=== PATIENT | female | born 1940 | race Caucasian/White ===

== ENCOUNTER 2017-12-07 07:52 | Day surgery (SDC) | payer OTHER ==
[2017-12-07] MEDS ORDERED: Ringers Lactate 1,000 ML IV ONE ×3 (08:02→12:36)
[2017-12-07] MEDS ORDERED: PROPOFOL 200 MG/20 ML VIAL IV ONE (09:54)
[2017-12-07] MEDS ORDERED: LIDOCAINE 1% MPF 2 ML AMPULE ONE (09:54)
[2017-12-07] MEDS ORDERED: GENTAMICIN SULF 80 MG/2ML INJ ONE (09:55)
[2017-12-07] MEDS ORDERED: GLUCAGON 1 MG/VIAL IV ONE ×2 (10:18→10:26)
[2017-12-07] MEDS ORDERED: CEFAZOLIN/SWI 1gm 1 GM/10 ML SYR ONE (11:02)
--- NOTE | 2017-12-07 11:05 | RAD REPORT ---
EXAM DESCRIPTION: Fluoroscopy for ERCP CLINICAL HISTORY: ERCP Abdominal pain FINDINGS: Fluoroscopic images submitted from ERCP procedure. Details and diagnostic findings of the procedure are not available. Total fluoroscopy time: 8 minutes and 8 seconds
[2017-12-07] MEDS ORDERED: ONDANSETRON 4 MG/2 ML VIAL IV ONE (11:15)
[2017-12-07] MEDS ORDERED: ONDANSETRON 4 MG/2 ML VIAL ONE (11:21)
--- NOTE | 2017-12-07 11:53 | ENDO RPT ---
[address], [address] ERCP PROCEDURE REPORT EXAM DATE: 12/07/2017 PATIENT NAME: Susi Bell MR #: [id number] BIRTHDATE: 1940 ATTENDING: Cristiano Carrasquillo Dr STATUS: outpatient SENIOR BOOKKEEPER: Eunice Tinoco RN and Mary Ann Lowery INDICATIONS: The patient is a 76 yr old Female here for an ERCP due to stone and abnormal imaging PROCEDURE PERFORMED: ERCP with sphincterotomy, ERCP with balloon passage, and ERCP with removal of stones MEDICATIONS: Per Anesthesia. CONSENT: The patient understands the risks and benefits of the procedure and understands that these risks include, but are not limited to: sedation, allergic reaction, infection, perforation and/or bleeding. Alternative means of evaluation and treatment include, among others: physical exam, x-rays, and/or surgical intervention. The patient elects to proceed with this endoscopic procedure. DESCRIPTION OF PROCEDURE: During intra-op preparation period all mechanical medical equipment was checked for proper function. Hand hygiene and appropriate measures for infection prevention was taken. Procedure, possible complications, and alternatives including but not limited to the possibility of bleeding, perforation, tear, infection, sepsis, need for surgery, need for blood transfusion, and anesthesia related complications were explained to the patient. In addition, 5-30% incidence of acute pancreatitis as a result of ERCP were explained. After the risks, benefits and alternatives of the procedure were thoroughly explained, Informed was verified, confirmed and timeout was successfully executed by the treatment team. With the patient in left semi-prone position, medications were administered intravenously.The ED-[id number] ([id number]) was passed from the mouth into the esophagus and further advanced from the esophagus into the stomach. From stomach scope was directed to the second portion of the duodenum. Major papilla was aligned with the duodenoscope. The scope position was confirmed fluoroscopically. Rest of the findings/therapeutics are given below. The scope was then completely withdrawn from the patient and the procedure completed. The pulse, BP, and O2 saturation were monitored and documented by the physician and the nursing staff throughout the entire procedure. The patient was cared for as planned according to standard protocol. The patient was then discharged to recovery in stable condition and with appropriate post procedure care. Multiple stones were found in the common bile duct. Sphincterotomy was performed with a regular 20 mm papillotome. A stone retrieval balloon was passed. The pancreatic duct was filled to the tail and appeared to be normal. Care was taken not to overfill the ductal system. Gastritis noted in the stomach body. With jumbo forceps, biopsy was obtained and sent to pathology. ADVERSE EVENT: none stone) stones in the common bile duct, s/p sphincterotomy, 9 mm balloon catheter passage with removal of stones 2. The pancreatic duct was filled to the tail and appeared to be normal. Care was taken not to overfill the ductal system. 3. Moderate atrohphic gastritis in the stomach body, s/p biopsy RECOMMENDATIONS: 1. await biopsy results 2. antibiotics 3. 3 liters IVFs (if no CHF) 4. follow-up: GI clinic 1 week(s) REPEAT EXAM: Cristiano Carrasquillo Dr eSigned: Cristiano Carrasquillo Dr 12/07/2017 10:58 AM cc: Slade Murphy CPT CODES: ICD9 CODES: PATIENT NAME: Susi Bell MR#: [id number]
--- NOTE | 2017-12-07 11:53 | ENDO RPT ---
[address], [address] ERCP PROCEDURE REPORT EXAM DATE: 12/07/2017 PATIENT NAME: Susi Bell MR #: [id number] BIRTHDATE: 1940 ATTENDING: Cristiano Carrasquillo Dr STATUS: outpatient RIVET THROWER: Eunice Tinoco RN and Mary Ann Lowery INDICATIONS: The patient is a 76 yr old Female here for an ERCP due to stones in CBD / choledocholithiasis on MRCP, abnormal imaging PROCEDURE PERFORMED: ERCP with sphincterotomy, ERCP with balloon passage, and ERCP with removal of stones MEDICATIONS: Per Anesthesia. CONSENT: The patient understands the risks and benefits of the procedure and understands that these risks include, but are not limited to: sedation, allergic reaction, infection, perforation and/or bleeding. Alternative means of evaluation and treatment include, among others: physical exam, x-rays, and/or surgical intervention. The patient elects to proceed with this endoscopic procedure. DESCRIPTION OF PROCEDURE: During intra-op preparation period all mechanical medical equipment was checked for proper function. Hand hygiene and appropriate measures for infection prevention was taken. Procedure, possible complications, and alternatives including but not limited to the possibility of bleeding, perforation, tear, infection, sepsis, need for surgery, need for blood transfusion, and anesthesia related complications were explained to the patient. In addition, 5-30% incidence of acute pancreatitis as a result of ERCP were explained. After the risks, benefits and alternatives of the procedure were thoroughly explained, Informed was verified, confirmed and timeout was successfully executed by the treatment team. With the patient in left semi-prone position, medications were administered intravenously.The ED-[id number] ([id number]) was passed from the mouth into the esophagus and further advanced from the esophagus into the stomach. From stomach scope was directed to the second portion of the duodenum. Major papilla was aligned with the duodenoscope. The scope position was confirmed fluoroscopically. Rest of the findings/therapeutics are given below. The scope was then completely withdrawn from the patient and the procedure completed. The pulse, BP, and O2 saturation were monitored and documented by the physician and the nursing staff throughout the entire procedure. The patient was cared for as planned according to standard protocol. The patient was then discharged to recovery in stable condition and with appropriate post procedure care. Multiple stones were found in the common bile duct. Sphincterotomy was performed with a regular 20 mm papillotome. A stone retrieval balloon was passed. The pancreatic duct was filled to the tail and appeared to be normal. Care was taken not to overfill the ductal system. Gastritis noted in the stomach body. With jumbo forceps, biopsy was obtained and sent to pathology. ADVERSE EVENT: none stone) stones in the common bile duct, s/p sphincterotomy, 9 mm balloon catheter passage with removal of stones 2. The pancreatic duct was filled to the tail and appeared to be normal. Care was taken not to overfill the ductal system. 3. Moderate atrohphic gastritis in the stomach body, s/p biopsy RECOMMENDATIONS: 1. await biopsy results 2. antibiotics 3. 3 liters IVFs (if no CHF) 4. follow-up: GI clinic 1 week(s) REPEAT EXAM: Cristiano Carrasquillo Dr eSigned: Cristiano Carrasquillo Dr 12/07/2017 10:59 AM Revised: 12/07/2017 10:59 AM cc: Slade Murphy CPT CODES: ICD9 CODES: PATIENT NAME: Susi Bell MR#: [id number]
[2017-12-07] MEDS ORDERED: GLUCAGON 1 MG/VIAL ONE (12:20)
== END 2017-12-07 13:45 | disposition home or self-care (01) ==
LOC: OR 07:52
PROVIDERS: ATTEND Internal Medicine Gastroenterology
PROC: 0FC98ZZ Extirpation of Matter from Common Bile Duct, Via Natural or Artificial Opening Endoscopic (ICD-10-PCS; principal; 2017-12-07 10:45)
DX: K80.81 Other cholelithiasis with obstruction (principal); K29.50 Unspecified chronic gastritis without bleeding; B96.81 Helicobacter pylori [H. pylori] as the cause of diseases classified elsewhere; Z88.6 Allergy status to analgesic agent; Z87.891 Personal history of nicotine dependence; Z80.0 Family history of malignant neoplasm of digestive organs
CPT/HCPCS: 43262; 43264; 88305; 88312; C1769; J0690; J1580; J1610 ×3; J2001; J2405 ×2

== ENCOUNTER 2017-12-19 09:53 | Day surgery (SDC) | payer OTHER ==
--- NOTE | 2017-12-15 09:39 | RAD REPORT ---
EXAM DESCRIPTION: RAD - Chest Pa And Lat (2 Views) - 12/15/2017 9:25 am CLINICAL HISTORY: History of smoking Chest pain. COMPARISON: RAD CHEST PA AND LAT (2 VIEWS) dated 01/07/2014 FINDINGS: Small calcified granuloma is present in the right lung base. The lungs are otherwise clear . The heart is normal in size. No displaced fractures. IMPRESSION: No acute or concerning finding suspected.
--- NOTE | 2017-12-16 06:57 | EKG ---
Test Date: 2017-12-15 Test Time: 09:15:41 Burning Plant Operator: DESTINY MEASUREMENT RESULTS: Intervals: Rate: 71 MA: 204 QRSD: 96 QT: 384 QTc: 417 [place]: P: 64 MA: 204 QRS: -4 T: 32 INTERPRETIVE STATEMENTS: Normal sinus rhythm Normal ECG Compared to ECG 09/06/2005 15:00:51 No significant changes Electronically Signed On 12-16-17 06:54:54 CDT by Osman Cox
[2017-12-19] MEDS ORDERED: MIDAZOLAM HCL 2 MG/2 ML INJ ONE (10:02)
[2017-12-19] MEDS ORDERED: FENTANYL CITR 100 MCG/2 ML ONE (10:02)
[2017-12-19] MEDS ORDERED: ROCURONIUM 50 MG/5 ML VIAL IV ONE (10:02)
[2017-12-19] MEDS ORDERED: PROPOFOL 200 MG/20 ML VIAL IV ONE (10:02)
[2017-12-19] MEDS ORDERED: LIDOCAINE 2% MPF 5 ML VIAL ONE (10:03)
[2017-12-19 10:34] LABS: Absolute Lymphocytes (CBC) 1.2 K/uL (0.7-4.9); Absolute Monocytes 0.6 K/uL (0.1-1.3); Absolute Neutrophil 5.4 K/uL (1.8-8.0); Basophils % 0.5 % (0-1.3); Eosinophils % 2.4 % (0-4.4); Lymphocytes % 16.5 % (15.3-44.8); MCH 29.6 pg (27.0-35.0); MCV 87.2 fL (80-100); MPV 8.3 fL (7.6-11.3); Monocytes % 8.4 % (3.3-12.3); RBC Red Blood Cell Count 4.59 M/uL (3.86-4.86)
[2017-12-19] MEDS ORDERED: CEFOXITIN/SWI 1gm 1 GM/10 ML SYR ONE (10:34)
[2017-12-19] MEDS: Ringers Lactate 1,000 ML IV ONE ×2 (10:45→11:24)
[2017-12-19 11:13] LABS: ALT/SGPT 24 U/L (12-78); AST/SGOT 22 U/L (15-37); Albumin 3.2 g/dL (3.4-5.0); Alkaline Phosphatase 144 U/L (45-117); Amylase Level 50 U/L (25-115); BUN Blood Urea Nitrogen 12 mg/dL (7-18); Bicarbonate 26 mmol/L (21-32); Bilirubin Direct < 0.1 mg/dL (0-0.2); Bilirubin Total 0.4 mg/dL (0.2-1.0); Glucose Level 98 mg/dL (74-106); Potassium 3.9 mmol/L (3.5-5.1); Protein, Total 7.1 g/dL (6.4-8.2); Sodium Level 142 mmol/L (136-145)
[2017-12-19] MEDS ORDERED: KETOROLAC 30 MG/ML INJ ONE (12:12)
[2017-12-19] MEDS ORDERED: GLYCOPYRROLATE 0.2 MG/ML SYR ONE (12:13)
[2017-12-19] MEDS ORDERED: ONDANSETRON HCL 40 MG/20 ML VIAL ONE (12:13)
[2017-12-19] MEDS ORDERED: NEOSTIGMINE 1 MG/ML -5 ML SYRINGE ONE (12:17)
--- NOTE | 2017-12-19 12:19 | P.BOP ---
Preoperative diagnosis: acute cholecystitis, symptomatic cholelithiasis Postoperative diagnosis: same Primary procedure: Laparocopic cholecystectomy Estimated blood loss: <10cc Specimen: gb Findings: as above Anesthesia: General Complications: None
[2017-12-19] MEDS: MEPERIDINE HCL 50 MG/ML AMP ONE ×3 (12:28→12:48)
[2017-12-19] MEDS ORDERED: DEXAMETHASONE 10 MG/ML VIAL ONE (12:32)
[2017-12-19] MEDS ORDERED: TRAMADOL 37.5mg/APAP 325mg PER TAB ONE (14:19)
--- NOTE | 2017-12-21 22:20 | OP ---
Date of Procedure: 12/19/2017 Surgeon: Paxton Vanegas MD Diagnoses: Acute cholecystitis, symptomatic cholelithiasis. Postoperative Diagnoses: Acute cholecystitis, symptomatic cholelithiasis. Procedure: Laparoscopic cholecystectomy. Anesthesia: General plus local. Indications: This is a case of a 77 years old patient comes to us with above diagnoses, fully explai freddie the benefits, alternatives, and risks of laparoscopic, possible open cholecystectomy which includ e but are not limited to infection, bleeding, damage to adjacent structures, anesthesia complication, choledocholithiasis, bile leak, pancreatitis, [place], and even . She also understands this may not relieve any symptoms. She might need more than one surgical intervention. She understood and sandra d a consent. Description Of Procedure: The patient was brought to the operative room and placed in supine positio n. Anesthesia was achieved without complication. Abdominal area was prepped and draped in a sterile fashion. Marcaine 0.5% injected for local anesthetic, followed by sharp incision of the skin in the infraumbilical region. Incision was carried down to fascia, which was opened under direct vision. Peritoneum was encountered and opened under direct vision. Vicryl #1 was placed inside the fascia. Page trocar was carefully introduced. No bleeding was obtained. After that, I placed 3 more troca rs, 5 mm each one of them, in the right upper quadrant under direct visualization. We noticed the ga llbladder to be distended and inflamed with evidence of cholecystitis. We put a needle in the gallbl adder under direct visualization, aspirated the gallbladder, and removed the needle under direct vis ualization. I put a grasper in the fundus of the gallbladder, another grasper in the infundibulum, r etracted the gallbladder in the inferolateral fashion exposing the triangle of Calot, and obtained cl inical view of safety. The cystic duct and cystic artery were clearly isolated free circumferentiall y and a connection between those and the gallbladder was clearly identified. I proceeded to ligate t hose by using at least 3 clips proximal, 1 clip distal, ligation in middle. The same was done on the cystic artery. No bile leak. No bleeding. The gallbladder was removed from the liver using Bovie cauterizer and removed from the abdominal cavity using an EndoCatch through the umbilical incision. The area was inspected once again. No bile leak. No bleeding. Clips were intact. Gallbladder arun a was intact with no bleeding. At that moment, I proceeded to remove the trocars under direct vision , deflated pneumoperitoneum, and closed the fascia with #1 Vicryl, irrigated subcutaneous tissue, teetee sed that with 3-0 chromic, and skin approximated. Sponge count and instrument counts were correct. The patient tolerated the procedure well. The patient was sent to Recovery in stable condition. Diagnoses: Acute cholecystitis, symptomatic cholelithiasis. Disposition: Home. Activity: As tolerated. No heavy lifting. Followup: Follow up in my office in 1 week. Call for appointment on [phone]. Keep the area dry fo r 48 hours, then may shower. Keep Steri-Strips intact. Medications: See orders. VIOLETTE/MODL Voice ID: [id number] Report ID: [id number]
== END 2017-12-19 14:50 | disposition home or self-care (01) ==
LOC: OR 09:53
PROVIDERS: ATTEND Surgery
PROC: 0FT44ZZ Resection of Gallbladder, Percutaneous Endoscopic Approach (ICD-10-PCS; principal; 2017-12-19 11:30)
DX: K80.12 Calculus of gallbladder with acute and chronic cholecystitis without obstruction (principal); Z88.6 Allergy status to analgesic agent; Z90.710 Acquired absence of both cervix and uterus; Z80.7 Family history of other malignant neoplasms of lymphoid, hematopoietic and related tissues; Z80.0 Family history of malignant neoplasm of digestive organs; Z82.49 Family history of ischemic heart disease and other diseases of the circulatory system; Z83.3 Family history of diabetes mellitus
CPT/HCPCS: 36415; 47562; 71046; 80048; 80076; 82150; 85025; 88304; 93005; J1100; J2175; J2250; J2405; J2710; J3010

== ENCOUNTER 2023-03-31 09:57 | Inpatient (IN) | payer OTHER ==
[2023-03-31] MEDS ORDERED: ONDANSETRON 4 MG/2 ML VIAL ONE ×2 (11:01→15:34)
[2023-03-31] MEDS ORDERED: NA CHLORIDE 0.9% 500 ML ONE (11:01)
[2023-03-31 11:07] LABS: SARS-CoV-2 Antigen Rapid Res Negative (Negative)
[2023-03-31 11:27] LABS: Absolute Lymphocytes (CBC) 0.7 K/uL (0.7-4.9); Hematocrit 39.2 % (36.0-45.0); Lymphocytes % 3.2 % (15.3-44.8); MCV 87.8 fL (80-100); MPV 7.6 fL (7.6-11.3); Platelets 313 thou/uL (152-406); RBC Red Blood Cell Count 4.46 M/uL (3.86-4.86)
[2023-03-31 11:45] LABS: Albumin 2.6 g/dL (3.4-5.0); Bilirubin Total 1.1 mg/dL (0.2-1.0); Potassium 3.9 mEq/L (3.5-5.1)
[2023-03-31 11:51] LABS: Blood Morphology Comment NOT SEEN (NOT SEEN); Platelet Estimate ADEQ; Toxic Granulation 1+; White Blood Cell Scan OK (OK)
[2023-03-31] MEDS ORDERED: FAMOTIDINE 20 MG/2 ML VIAL IV ONE (12:13)
--- NOTE | 2023-03-31 12:20 | RAD REPORT ---
EXAM DESCRIPTION: CTAbdomen Pelvis W Contrast - 03/31/2023 12:07 pm CLINICAL HISTORY: ABD PAIN COMPARISON: Abdomen Pelvis Wo Contrast dated 09/05/2018 TECHNIQUE: CT of the abdomen and pelvis was performed with IV contrast. All CT scans are performed using dose optimization technique as appropriate and may include automated exposure control or mA/KV adjustment according to patient size. FINDINGS: Lower chest: No acute abnormality. Liver: No acute abnormality or suspicious lesions. Biliary: Cholecystectomy. Mild extrahepatic biliary duct dilatation is likely related to the postchol ecystectomy state. Stomach: No significant focal abnormality. Duodenum: No significant focal abnormality. Pancreas: No significant abnormality. Spleen: Mild splenomegaly. Adrenal: No suspicious lesions. Kidney/ureter: Mild right-sided hydronephrosis. This combination of stone and gas at the right renal pelvis/ UPJ. This stone measures 10 millimeters. There is some high density located lateral to the st one in the renal pelvis that may represent an early stone formation or hemorrhage. Right-sided perine phric stranding and somewhat striated appearance of the kidney. 3 mm stone in left kidney. Left renal sinus cyst. Retroperitoneum: No retroperitoneal adenopathy. Vascular: No aneurysm. Bowel: No significant focal abnormality. Peritoneum: No ascites or free air. Bladder: 2 mm calcification at the base of the bladder could represent a small recently passed stone. Reproductive: Hysterectomy Bones: No acute fracture. Other: n/a IMPRESSION: Mild right-sided hydronephrosis with possible pyelitis and right sided pyelonephritis se condary to a 10 mm right UPJ stone. No renal abscess. Recommend urologic consultation.
[2023-03-31] MEDS ORDERED: CEFTRIAXONE 1000 MG/VIAL ONE (12:53)
[2023-03-31] MEDS ORDERED: NA CHLORIDE 0.9% 50 ML ONE (12:53)
[2023-03-31 12:57] LABS: Protime INR 1.48
--- NOTE | 2023-03-31 13:02 | EDPHYS ---
Physician Documentation [facility] Name: Susi Bell Age: 82 yrs Sex: Female : 1940 Arrival Date: 03/31/2023 Time: 09:57 Bed 15 Private MD: ED Physician Chris Hernandez HPI: 03/31 10:58 This 82 yrs old Female presents to ER via Ambulatory with complaints of Fever, ms3 Nausea/Vomiting. 10:58 82-year-old female with past medical history of urinary tract infection, kidney stones ms3 presents to the emergency department for nausea, vomiting that began this morning and fever that began on Tuesday. Patient states her Tmax is 102.1. Patient states her discomfort is a 1-2/10. Patient states she took some Zofran today with mild relief. Patient denies any inciting factors. Historical: - Allergies: 10:13 Percodan; iw - Home Meds: 10:13 Metoprolol Tartrate Oral [Active]; iw - PMHx: 10:13 UTI; arrhythmia; iw - Immunization history:: Adult Immunizations unknown. - Social history:: Smoking status: Patient denies any tobacco usage or history of. ROS: 10:58 Neck: Negative for injury, pain, and swelling, Cardiovascular: Negative for chest pain, ms3 and palpitations. Respiratory: Negative for shortness of breath, cough, wheezing, and pleuritic chest pain, Abdomen/GI: Negative for abdominal pain, nausea, vomiting, diarrhea, and constipation, 10:58 Skin: Negative for injury, rash, and discoloration, 10:58 Constitutional: Positive for chills, fever, 10:58 Abdomen/GI: Positive for nausea and vomiting, 10:58 All other systems are negative, Exam: 10:58 Constitutional: This is a well developed, well nourished patient who is awake, alert, ms3 and in no acute distress. Head/Face: Normocephalic, atraumatic. Neck: Trachea midline, no cervical lymphadenopathy. Supple, full range of motion without nuchal rigidity, or vertebral point tenderness. No Meningismus. Chest/axilla: Normal chest wall appearance and motion. Nontender with no deformity. Cardiovascular: Regular rate and rhythm with a normal S1 and S2. No gallops, murmurs, or rubs. Normal PMI, no JVD. No pulse deficits. Respiratory: Lungs have equal breath sounds bilaterally, clear to auscultation and percussion. No rales, rhonchi or wheezes noted. No increased work of breathing, no retractions or nasal flaring. Abdomen/GI: Soft, non-tender, with normal bowel sounds. No distension or tympany. No guarding or rebound. No evidence of tenderness throughout. Skin: Warm, dry with normal turgor. Normal color with no rashes, no lesions, and no evidence of cellulitis. 12:43 ECG was reviewed by the Attending Physician. ms3 Vital Signs: 11:44 BP 99 / 50; Pulse 93; Resp 18; Temp 97.2; Pulse Ox 96% on R/A; ph 13:09 BP 160 / 105; Pulse 89; Resp 18; Pulse Ox 99% on R/A; ph 14:00 BP 129 / 78; Pulse 92; Resp 18; Pulse Ox 99% on R/A; ph 15:08 BP 118 / 62; Pulse 89; Resp 18; Temp 98.7; Pulse Ox 100% on R/A; ph MDM: 10:16 Patient medically screened. ms3 10:58 Differential diagnosis: viral Infection, UTI, Bowel obstruction versus pancreatitis ms3 versus electrolyte abnormality. 12:42 Management of patient was discussed with the following: Liquor Rectifier: Discussed case with ms3 Dr Wise. He would like patient to be made NPO. Obtain CXR and EKG. 13:02 Data reviewed: vital signs, nurses notes, lab test result(s), EKG, radiologic studies, ms3 and as a result, I will admit patient. Consideration of Admission/Observation Patient was admitted/placed on observation. I considered the following discharge prescriptions or medication management in the emergency department Medications were administered in the Emergency Department. See MAR. Independent interpretation of the following test(s) in the Emergency Department EKG: See my EKG interpretation above. Care significantly affected by the following chronic conditions: UTI. Counseling: I had a detailed discussion with the patient and/or guardian regarding the historical points, exam findings, and any diagnostic results supporting the discharge/admit diagnosis, lab results, radiology results, the need for further work-up and treatment in the hospital. ED course: Discussed labs, imaging with patient. Patient understands and agrees with admission. Case was discussed with Dr. Wise. Case discussed with Dr. Douglas and he accepts patient. Patient NPO at this time. EKG NSR. CXR pending.. 03/31 10:16 Order name: CBC with Diff; Complete Time: 12:26 ms3 03/31 10:16 Order name: CMP; Complete Time: 12:26 ms3 03/31 10:16 Order name: Lipase; Complete Time: 12:26 ms3 03/31 10:16 Order name: Flu; Complete Time: 12:26 ms3 03/31 10:16 Order name: SARS RAPID; Complete Time: 11:23 ms3 03/31 11:00 Order name: Urinalysis w/ reflexes; Complete Time: 13:04 ms3 03/31 11:44 Order name: Blood Culture Adult (2) ms3 03/31 11:44 Order name: Lactate w/ 2H reflex if indic.; Complete Time: 13:00 ms3 03/31 11:44 Order name: Protime (+inr); Complete Time: 13:00 ms3 03/31 11:44 Order name: Ptt, Activated; Complete Time: 13:00 ms3 03/31 11:51 Order name: Manual Differential; Complete Time: 12:26 EDMS 03/31 11:51 Order name: CBC Smear Scan; Complete Time: 12:26 EDMS 03/31 13:09 Order name: Urine Culture EDMS 03/31 13:47 Order name: T4 Free; Complete Time: 15:03 EDMS 03/31 13:47 Order name: Thyroid Stimulating Hormone; Complete Time: 15:03 EDMS 03/31 13:47 Order name: Urinalysis w/ reflexes EDMS 03/31 13:47 Order name: Basic Metabolic Panel EDMS 03/31 13:47 Order name: Basic Metabolic Panel EDMS 03/31 13:47 Order name: Basic Metabolic Panel EDMS 03/31 13:47 Order name: Basic Metabolic Panel EDMS 03/31 13:47 Order name: CBC with Automated Diff EDMS 03/31 13:47 Order name: CBC with Automated Diff EDMS 03/31 13:47 Order name: CBC with Automated Diff EDMS 03/31 13:47 Order name: CBC with Automated Diff EDMS 03/31 13:47 Order name: Lipid Profile EDMS 03/31 13:47 Order name: Lipid Profile EDMS 03/31 13:47 Order name: Magnesium EDMS 03/31 13:47 Order name: Magnesium EDMS 03/31 13:47 Order name: Magnesium EDMS 03/31 13:47 Order name: Magnesium EDMS 03/31 13:47 Order name: Phosphorus EDMS 03/31 13:47 Order name: Phosphorus EDMS 03/31 13:47 Order name: Phosphorus EDMS 03/31 13:47 Order name: Phosphorus EDMS 03/31 10:16 Order name: CT Abd/Pelvis - IV Contrast Only; Complete Time: 12:26 ms3 03/31 12:42 Order name: CXR XRAY; Complete Time: 15:03 ms3 03/31 11:44 Order name: EKG; Complete Time: 11:45 ms3 03/31 13:46 Order name: CONS Physician Consult EDMS 03/31 10:16 Order name: IV Saline Lock; Complete Time: 11:46 ms3 03/31 10:16 Order name: Labs collected and sent; Complete Time: 11:46 ms3 03/31 11:44 Order name: Accucheck; Complete Time: 11:45 ms3 03/31 11:44 Order name: Cardiac monitoring; Complete Time: 12:29 ms3 03/31 11:44 Order name: EKG - Nurse/Tech; Complete Time: 12:29 ms3 03/31 11:44 Order name: IV Saline Lock - Large Bore; Complete Time: 11:45 ms3 03/31 11:44 Order name: O2 Per Protocol; Complete Time: 11:45 ms3 03/31 11:44 Order name: O2 Sat Monitoring; Complete Time: 11:45 ms3 03/31 11:44 Order name: Vital Signs; Complete Time: 11:45 ms3 03/31 12:42 Order name: NPO; Complete Time: 12:48 ms3 EC:43 Rate is 93 beats/min. Rhythm is regular. QRS Diamond is Normal. NH interval is normal. QRS ms3 interval is normal. Clinical impression: Normal ECG. Interpreted by me. Reviewed by me. Administered Medications: 11:45 Drug: Ondansetron IVP 4 mg IVP once; over 2 minutes Route: IVP; Site: left antecubital; ph 11:45 Drug: NS 0.9% IV 500 ml IV at bolus once Route: IV; Rate: bolus; Site: left forearm; ph 12:30 Drug: Famotidine IVP 20 mg IVP once; dilute with 10 mL 0.9% NaCl; give over 2 minutes ph Route: IVP; Site: left forearm; 12:55 Drug: Rocephin IV 1 grams IV at calculated rate once; Given slow IV push per pharmacy ph instructions Route: IV; Rate: calculated rate; Site: left forearm; Disposition Summary: 03/31/23 13:01 Hospitalization Ordered Notes: Hospitalization Status: Inpatient Admission ms3 Provider: Felicia Douglas ms3 Condition: Stable ms3 Problem: new ms3 Symptoms: are unchanged ms3 Bed/Room Type: Standard ms3 Location: Telemetry/MedSurg (Inpatient)(03/31/23 15:11) Room Assignment: 211(03/31/23 15:11) Diagnosis - Pyelonephritis acute ms3 - Kidney stone ms3 - Sepsis without end organ dysfunction ms3 Forms: - Medication Reconciliation Form ms3 - SBAR form ms3 - Leadership Thank You Letter ms3 Signatures: Dispatcher [employer] Anu Mcdonald, RN RN James Jones ds4 Alisia Parra RN RN Samuel Hinton RN RN ja1 Chris Hernandez DO DO ms3 Corrections: (The following items were deleted from the chart) 13:05 13:02 Landon ordered. ms3 ph 14:46 13:01 ms3 ja1 15:08 13:01 Telemetry/MedSurg (Inpatient) ms3 ds4 15:08 14:46 211 ja1 ds4 15:11 15:08 [facility] ER HOLD ds4 iw 15:11 15:08 ERHOLD- ds4 iw
--- NOTE | 2023-03-31 13:02 | ER ---
Nurse's Notes [facility] Name: Susi Bell Age: 82 yrs Sex: Female : 1940 Arrival Date: 03/31/2023 Time: 09:57 Bed 15 Private MD: Diagnosis: Pyelonephritis acute;Kidney stone;Sepsis without end organ dysfunction Presentation: 03/31 10:12 Chief complaint: Patient states: n/v today , she had fever on Tuesday and last night iw , + chills. 10:12 Coronavirus screen: Client presents with at least one sign or symptom that may indicate iw coronavirus-19. Ebola Screen: Patient negative for fever greater than or equal to 101.5 degrees Fahrenheit, and additional compatible Ebola Virus Disease symptoms Patient denies exposure to infectious person. Patient denies travel to an Ebola-affected area in the 21 days before illness onset. No symptoms or risks identified at this time. Initial Sepsis Screen: Does the patient meet any 2 criteria? No. Patient's initial sepsis screen is negative. Does the patient have a suspected source of infection? No. Patient's initial sepsis screen is negative. Risk Assessment: Do you want to hurt yourself or someone else? Patient reports no desire to harm self or others. Onset of symptoms was March 30, 2022. 10:12 Method Of Arrival: Ambulatory iw 10:12 Acuity: DALTON 3 iw Historical: - Allergies: 10:13 Percodan; iw - Home Meds: 10:13 Metoprolol Tartrate Oral [Active]; iw - PMHx: 10:13 UTI; arrhythmia; iw - Immunization history:: Adult Immunizations unknown. - Social history:: Smoking status: Patient denies any tobacco usage or history of. Screenin:07 [facility] ED Fall Risk Assessment (Adult) History of falling in the last 3 months, ph including since admission No falls in past 3 months (0 pts) Score/Fall Risk Level 0 - 2 = Low Risk Oriented to surroundings, Maintained a safe environment, Provided non-skid footwear, Hourly rounding (assess needs \T\ fall precautionary measures) done. Abuse screen: Denies threats or abuse. Denies injuries from another. Abuse screen: Denies threats or abuse. Nutritional screening: No deficits noted. Tuberculosis screening: No symptoms or risk factors identified. Assessment: 11:06 General: Appears in no apparent distress. uncomfortable, Behavior is calm, cooperative, ph appropriate for age. Pain: Denies pain. Neuro: Level of Consciousness is awake, alert, obeys commands, Oriented to person, place, time, Appropriate for age. Cardiovascular: Capillary refill < 3 seconds in bilateral fingers Patient's skin is warm and dry. Respiratory: Airway is patent Respiratory effort is even, unlabored, Respiratory pattern is regular, symmetrical. GI: Abdomen is non-distended, Reports nausea, vomiting, Patient currently denies abdominal pain. : No signs and/or symptoms were reported regarding the genitourinary system. Derm: Skin is fragile, is thin, Skin is pink, warm \T\ dry. Musculoskeletal: Circulation, motion, and sensation intact. Range of motion: intact in all extremities. 15:45 Reassessment: Patient appears in no apparent distress at this time. Patient and/or ph family updated on plan of care and expected duration. Pain level reassessed. Patient is alert, oriented x 3, equal unlabored respirations, skin warm/dry/pink. Attempted to call report,receiving nurse unavailable for report, was told that they would call back. 16:40 Reassessment: Report called to Ruth NOVOA. ph Vital Signs: 11:44 BP 99 / 50; Pulse 93; Resp 18; Temp 97.2; Pulse Ox 96% on R/A; ph 13:09 BP 160 / 105; Pulse 89; Resp 18; Pulse Ox 99% on R/A; ph 14:00 BP 129 / 78; Pulse 92; Resp 18; Pulse Ox 99% on R/A; ph 15:08 BP 118 / 62; Pulse 89; Resp 18; Temp 98.7; Pulse Ox 100% on R/A; ph ED Course: 10:00 Patient arrived in ED. kj1 10:10 Chris Hernandez DO is Attending Physician. ms3 10:13 Triage completed. iw 10:15 Arm band placed on. iw 10:38 SARS RAPID Sent. iw 10:38 Flu Sent. iw 10:41 Alisia Parra, BRIGHT is Primary Nurse. ph 10:57 Missed attempt(s): 22 gauge in right wrist. Bleeding controlled, band aid applied, ph catheter tip intact. Missed attempt(s): 24 gauge in left hand. Bleeding controlled, band aid applied, catheter tip intact. 11:07 No provider procedures requiring assistance completed. ph 11:08 Patient has correct armband on for positive identification. Placed in gown. Bed in low ph position. Call light in reach. Side rails up X 1. 11:22 Inserted saline lock: 22 gauge in left forearm, using aseptic technique. Blood ds4 collected. Missed attempt(s): 22 gauge in right forearm. Bleeding controlled, band aid applied, catheter tip intact. 12:08 CT Abd/Pelvis - IV Contrast Only In Process Unspecified. EDMS 12:48 Lactate w/ 2H reflex if indic. Sent. ph 12:48 Protime (+inr) Sent. ph 12:48 Ptt, Activated Sent. ph 12:48 Blood Culture Adult (2) Sent. ph 13:01 Felicia Douglas MD is Hospitalizing Provider. ms3 13:51 CXR XRAY In Process Unspecified. EDMS 15:46 Patient admitted, IV remains in place. ph Administered Medications: 11:45 Drug: Ondansetron IVP 4 mg IVP once; over 2 minutes Route: IVP; Site: left antecubital; ph 11:45 Drug: NS 0.9% IV 500 ml IV at bolus once Route: IV; Rate: bolus; Site: left forearm; ph 12:30 Drug: Famotidine IVP 20 mg IVP once; dilute with 10 mL 0.9% NaCl; give over 2 minutes ph Route: IVP; Site: left forearm; 12:55 Drug: Rocephin IV 1 grams IV at calculated rate once; Given slow IV push per pharmacy ph instructions Route: IV; Rate: calculated rate; Site: left forearm; Medication: 11:07 VIS not applicable for this client. ph Outcome: 13:01 Decision to Hospitalize by Provider. ms3 16:55 Admitted to Med/surg accompanied by tech, family with patient, via wheelchair, room ph 211, Report called to Ruth NOVOA 16:55 Condition: stable 16:55 Instructed on the need for admit, 16:56 Patient left the ED. ph Signatures: Dispatcher [employer] EDMS Anu Mar RN RN James Jones ds4 Alisia Parra RN RN Ana Boyle kj1 Chris Hernandez DO DO ms3 Corrections: (The following items were deleted from the chart) 10:13 10:12 Chief complaint: Patient states: n/v today , she had fever on Tuesday and last iw night iw
[2023-03-31 13:03] LABS: Specific Gravity > 1.030 (1.005-1.030); Urine Bacteria 20-50 /HPF (<20); Urine Bilirubin NEGATIVE (Negative); Urine Blood 2+ (Negative); Urine Clarity Extremely Turbid (Clear); Urine Color Light-Orange (Yellow); Urine Crystals Unidentified Few /HPF (None Seen); Urine Glucose NEGATIVE (Negative); Urine Mucus 2+ /HPF (None Seen); Urine Protein 3+ (Negative); Urine RBC >50 /HPF (None Seen); Urine Urobilinogen Normal (Normal); Urine WBC Clump Moderate /HPF (None Seen)
[2023-03-31] MEDS ORDERED: ALBUTEROL 2.5 MG/3 ML NEB SOL NEB PRN (13:32)
[2023-03-31] MEDS ORDERED: SODIUM CHLORIDE 0.9% 10ML INJ IV PRN (13:44)
[2023-03-31] MEDS ORDERED: MORPHINE 2 MG/ML SYR IV PRN (13:44)
--- NOTE | 2023-03-31 13:54 | P.HP ---
Certification for Inpatient Patient admitted to: Inpatient With expected LOS: <2 Midnights <Renea Rocha - Last Filed: 03/31/23 14:07> Patient History Date of Service: 03/31/23 Reason for admission: - Pyelonephritis, Kidney stone History of Present Illness: Ms. Bell 82-year-old female with a history of A-fib, hypertension, hyperlipidemia, UTIs and kidney stones presents to the ER via ambulatory with complaints of fever, nausea and vomiting. Nausea vomiting began this morning and patient started having fever since 03/30/2023. Patient reports her Tmax was 102.1. Severity of pain is 2/10. Patient's son helping with the history reports that patient took some Tylenol and Zofran in the morning f mild relief. Patient denies chest pain, discomfort, or palpitation. ED course Vital Signs: 11:44 BP 99 / 50; Pulse 93; Resp 18; Temp 97.2; Pulse Ox 96% on R/A; ECG: Rate is 93 beats/min. Rhythm is regular. QRS [place] is Normal. VT interval is normal. QRS ms3 interval is normal. Clinical impression: Normal ECG. Initial laboratory evaluation: CBC shows leukocytosis WBC of 22.9, metabolic panel shows renal impairment elevated BUN 19, elevated creatinine 1.35, low estimated GFR 40. Positive urine analysis. Abdomen Pelvis Wo Contrast dated 09/05/2018- Mild right-sided hydronephrosis with possible pyelitis and right sided pyelonephritis secondary to a 10 mm right UPJ stone. No renal abscess. Patient was given normal saline bolus, Zofran, famotidine IV, Rocephin antibiotics in the ED. Admitting with a diagnosis of acute pyelonephritis, kidney stone, renal impairment. - Past Medical/Surgical History -: HTN -: Afib -: HLD -: Insomnia -: UTIs - Social History Smoking Status: Never smoker Alcohol use: No CD- Drugs: No Caffeine use: Yes Place of Residence: Home <Renea Rocha - Last Filed: 03/31/23 14:07> Date of Service: 03/31/23 <Felicia Douglas - Last Filed: 03/31/23 15:26> Allergies codeine Allergy (Verified 12/15/17 08:50) Nausea/Vomiting oxycodone [From Percodan] Allergy (Verified 12/15/17 08:50) HALLUCINATIONS Home Medications: Citalopram [Celexa] 10 mg PO DAILY 12/07/17 Metoprolol Andrews/Hydrochlorothiaz [Metoprolol ER-Hctz 50-12.5 mg] 1 each PO DAILY 12/07/17 Simvastatin 40 mg PO DAILY 12/07/17 Sulfamethoxazole/Trimethoprim [Bactrim Ds Tablet] 1 each PO BID #10 tablet 12/19/17 Tramadol HCl/Acetaminophen [Ultracet Tablet] 1 each PO Q4H PRN #20 tablet 12/19/17 Review of Systems 10-point ROS is otherwise unremarkable <Renea Rocha - Last Filed: 03/31/23 14:07> Physical Examination - Physical Exam General: Alert, Oriented x3 HEENT: Atraumatic, Normocephalic Neck: Supple, 2+ carotid pulse no bruit Respiratory: Clear to auscultation bilaterally, Normal air movement Cardiovascular: No edema, Normal pulses Capillary refill: <2 Seconds Gastrointestinal: Normal bowel sounds Musculoskeletal: No clubbing, No swelling Integumentary: No rashes, No breakdown Neurological: Normal speech, Normal tone - Studies Laboratory Data (last 24 hrs) 03/31/23 03/31/23 03/31/23 12:40 11:20 11:20 WBC 22.90 H Hgb 13.1 Hct 39.2 Plt Count 313 PT 16.1 H INR 1.48 APTT 30.4 Sodium 136 Potassium 3.9 BUN 19 H Creatinine 1.35 H Glucose 127 H Total Bilirubin 1.1 H AST 34 ALT 34 Alkaline Phosphatase 144 H Lipase 12 L Microbiology Data (last 24 hrs): 03/31/23 10:35 Nasopharnyx Influenza Type A Antigen Screen - Final 03/31/23 10:35 Nasopharnyx Influenza Type B Antigen Screen - Final <Renea Rocha - Last Filed: 03/31/23 14:07> - Studies Laboratory Data (last 24 hrs) 03/31/23 03/31/23 03/31/23 12:40 11:20 11:20 WBC 22.90 H Hgb 13.1 Hct 39.2 Plt Count 313 PT 16.1 H INR 1.48 APTT 30.4 Sodium 136 Potassium 3.9 BUN 19 H Creatinine 1.35 H Glucose 127 H Total Bilirubin 1.1 H AST 34 ALT 34 Alkaline Phosphatase 144 H Lipase 12 L Microbiology Data (last 24 hrs): 03/31/23 10:35 Nasopharnyx Influenza Type A Antigen Screen - Final 03/31/23 10:35 Nasopharnyx Influenza Type B Antigen Screen - Final <Felicia Douglas - Last Filed: 03/31/23 15:26> Assessment and Plan - Problems (Diagnosis) (1) Acute pyelonephritis Current Visit: Yes Status: Acute (2) Hydronephrosis of right kidney Current Visit: Yes Status: Acute (3) Obstruction of right ureteropelvic junction (UPJ) due to stone Current Visit: Yes Status: Acute (4) HTN (hypertension) Current Visit: Yes Status: Chronic Qualifiers: Hypertension type: primary hypertension Qualified Code(s): I10 - Essential (primary) hypertension (5) Afib Current Visit: Yes Status: Chronic Qualifiers: Atrial fibrillation type: persistent (not longstanding) Qualified Code(s): I48.19 - Other persistent atrial fibrillation; I48.1 - Persistent atrial fibrillation (6) HLD (hyperlipidemia) Current Visit: Yes Status: Chronic Qualifiers: Hyperlipidemia type: unspecified Qualified Code(s): E78.5 - Hyperlipidemia, unspecified (7) Insomnia Current Visit: Yes Status: Chronic Qualifiers: Insomnia type: primary Qualified Code(s): 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 Tmax 102.1 last night CBC shows leukocytosis WBC of 22.9, Renal impairment elevated BUN 19, elevated creatinine 1.35, low estimated GFR 40. Positive urine analysis. Abdomen Pelvis Wo Contrast dated 09/05/2018- Mild right-sided hydronephrosis with possible pyelitis and right sided pyelonephritis secondary to a 10 mm right UPJ stone. No renal abscess. Consulted urologist Dr. Camacho recommended to keep the patient n.p.o. planning to stent to the patient around 7 PM tonight Patient is n.p.o. EKG, chest x-ray done antibiotics, IV fluids started Will continue to monitor the patient closely CKD 3 -Not sure if acute on chronic, renal impairment elevated BUN 19, elevated creatinine 1.35, low estimated GFR 40. Positive urine analysis. Started IV fluids, will reevaluate the patient's BMP in the morning Renal dose medications Avoid nephrotoxins, and avoid NSAIDs Hypertension Chronic controlled on metoprolol 50 mg p.o. daily at home Will reconcile and start the home medication as appropriate History of A-fib Chronic controlled, patient on aspirin 81 mg p.o. daily, patient reports she was never put on any other anticoagulants Now on sinus rhythm Continue to monitor Hyperlipidemia Chronic, on simvastatin at home Reconcile and restart the home medication Insomnia Chronic, controlled on Ambien 10 mg at bedtime We will continue the current medications N.p.o. DVT prophylaxis-SCDs for now CODE STATUS-full code Discharge Plan: Home Plan to discharge in: 48 Hours - Advance Directives Does patient have a Living Will: No Does patient have a Durable POA for Healthcare: No - Code Status/Comfort Care Code Status Assessed: Yes (full code) Code Status: Full Code Physician Review: Patient Assessed, Agree with Above Assessment and Plan Critical Care: No Time Spent Managing Pts Care (In Minutes): 55 (minutes) <Renea Rocha - Last Filed: 03/31/23 14:07> - Plan Pt seen and examined. I agree with the note by the [employer]. Pt is an 82 yo female with past medical history of A-fib, hypertension, hyperlipidemia, UTIs and kidney stones who presents with fever, nausea and vomiting. She also had right abd pain. On admission, lab studies showed WBC 22.9, Cr 1.55, lactate 1.7. CT abd shows 10mm UPJ stone. Urology plans to take her to the OR for stone removal. At bedside, pt is in NAD. A/P Sepsis 2/2 right pyelonephritis: Will continue zosyn and follow urine cx.Abdomen Pelvis Wo Contrast dated 09/05/2018- Mild right-sided hydronephrosis with possib le pyelitis and right sided pyelonephritis secondary to a 10 mm right UPJ stone. No renal abscess. Urology will take pt to the OR for stone removal. Lactate is 1.7. Will continue home med for other chronic medical problems. <Felicia Douglas - Last Filed: 03/31/23 15:26>
[2023-03-31] MEDS: PIPER TAZO 3.375 GM in NA CHLORIDE 0.9% 100 ML IV SCH (14:00)
[2023-03-31] MEDS: NA CHLORIDE 0.9% 1,000 ML IV SCH (14:00)
[2023-03-31] MEDS ORDERED: NA CHLORIDE 0.9% 100 ML ONE (14:25)
[2023-03-31] MEDS ORDERED: PIPERACIL/TAZO 3.375 GM VIAL IV ONE (14:25)
[2023-03-31] MEDS ORDERED: NA CHLORIDE 0.9% 1,000 ML ONE (14:26)
--- NOTE | 2023-03-31 14:42 | RAD REPORT ---
EXAM DESCRIPTION: [place] Single View03/31/2023 1:49 pm CLINICAL HISTORY: pre-op. Hypertension COMPARISON: Chest Pa And Lat (2 Views) dated 05/29/2019; Chest Pa And Lat (2 Views) dated 12/15/2017 TECHNIQUE: Portable AP view of the chest. FINDINGS: The lungs are clear apart from minimal bibasilar atelectasis. No pneumothorax or effusion . The cardiomediastinal contours are unremarkable. IMPRESSION: No acute cardiopulmonary process.
[2023-03-31 14:54] LABS: Thyroid Stimulating Hormone 1.16 uIU/mL (0.358-3.740)
[2023-03-31] MEDS ORDERED: Ringers Lactate 1,000 ML IV ONE (18:15)
[2023-03-31] MEDS ORDERED: PROMETHAZINE INJ 25 MG/ML AMP ONE (18:15)
[2023-03-31] MEDS ORDERED: MIDAZOLAM HCL 2 MG/2 ML INJ ONE (18:30)
[2023-03-31] MEDS ORDERED: FENTANYL CITR 100 MCG/2 ML ONE (18:30)
[2023-03-31] MEDS ORDERED: propofoL 200 MG/20 ML VIAL IV ONE (18:38)
--- NOTE | 2023-03-31 18:57 | P.CNS ---
Date of Consult: 03/31/23 Reason for Consult: obstructive pyelonephritis Requesting Physician: Renea Rocha Chief Complaint: - Pyelonephritis, Kidney stone History of Present Illness: 82-year-old woman with A-fib, hypertension, hyperlipidemia, history of recurrent UTIs and recurrent nephroureterolithiasis presents via the emergency department and admitted with fever up to 102, nausea and vomiting, and right flank pain that started around midday yesterday. Her pain is now controlled, but she has been intermittently subjectively febrile. Her last stone event was over 4 years ago, but her last UTI was about 6 months ago. She has a history of ESWL about 10 years ago at the surgical center. Past medical history: As above Past surgical history: As above No known drug allergies no she lists an intolerance to hydrocodone Social history: Never smoker Examination: Reasonably well-appearing and in no acute distress at this time Alert, awake, oriented x 3 No dyspnea or sign of respiratory distress No cervical/supraclavicular adenopathy or thyromegaly Abdomen soft, nontender, nondistended Pulse 2+ radial and regular without tachycardia No lower extremity tenderness or Homans' sign noted 03/31/2023 CT abdomen and pelvis with IV contrast findings: Mild right-sided hydronephrosis with 10 mm right UPJ stone with gas observed in the renal pelvis. Higher density material located lateral to the stone in the renal pelvis may represent hemorrhage or earlier stone formation. Right-sided perinephric stranding. Striated appearance of the right kidney. 3 mm left renal calculus. Left renal sinus cyst. WBC 22.9, hemoglobin 13.1, platelets 313, INR 1.48, creatinine 1.35, lactic acid 1.7, UA 1+ nitrites, 3+ leukocyte esterase Chest x-ray unremarkable Assessment and recommendation: 82-year-old woman with A-fib, hypertension, hyperlipidemia, history of recurrent UTIs and recurrent nephroureterolithiasis with 10 mm right UPJ obstructing calculus with signs of pyelonephritis and SIRS, suspected sepsis. -Given IV Zosyn on the floor after admission following ceftriaxone in the emergency department, which should both be adequate antimicrobial coverage -Cultures pending -Operative intervention recommended with cystoscopy and right ureteral stent placement. I counseled the patient and her family including and son about the procedure in detail and explained the risks of the procedure to include urethral stricture, ureteral injury, failure to achieve desired result and require percutaneous nephrostomy tube placement, worsening of infection. Need for subsequent definitive management of the stone was briefly discussed. -We will proceed accordingly with urgent cystoscopy, right retrograde pyelography, and right ureteral stent placement. Allergies codeine Allergy (Verified 12/15/17 08:50) Nausea/Vomiting oxycodone [From Percodan] Allergy (Verified 12/15/17 08:50) HALLUCINATIONS Home medications list reviewed: Yes Home Medications: Citalopram [Celexa] 10 mg PO DAILY 12/07/17 Metoprolol Andrews/Hydrochlorothiaz [Metoprolol ER-Hctz 50-12.5 mg] 1 each PO DAILY 12/07/17 Simvastatin 40 mg PO DAILY 12/07/17 Sulfamethoxazole/Trimethoprim [Bactrim Ds Tablet] 1 each PO BID #10 tablet 12/19/17 Tramadol HCl/Acetaminophen [Ultracet Tablet] 1 each PO Q4H PRN #20 tablet 12/19/17 - Past Medical/Surgical History Diabetic: No -: HTN -: Afib -: HLD -: Insomnia -: UTIs - Social History Alcohol use: No CD- Drugs: No Caffeine use: Yes Place of Residence: Home Physical Examination Temp Pulse Resp BP Pulse Ox 99.3 F 89 18 118/62 03/31/23 18:30 03/31/23 15:08 03/31/23 15:08 03/31/23 15:08 Laboratory Data (last 24 hrs) 03/31/23 03/31/23 03/31/23 12:40 11:20 11:20 WBC 22.90 H Hgb 13.1 Hct 39.2 Plt Count 313 PT 16.1 H INR 1.48 APTT 30.4 Sodium 136 Potassium 3.9 BUN 19 H Creatinine 1.35 H Glucose 127 H Total Bilirubin 1.1 H AST 34 ALT 34 Alkaline Phosphatase 144 H Lipase 12 L - Problems (1) Acute pyelonephritis Current Visit: Yes Status: Acute (2) Hydronephrosis of right kidney Current Visit: Yes Status: Acute (3) Obstruction of right ureteropelvic junction (UPJ) due to stone Current Visit: Yes Status: Acute Critical Care: No Time Spent Managing Pts care (In Minutes): 20
--- NOTE | 2023-03-31 19:28 | P.OP ---
Date of Service: 03/31/23 Preoperative diagnosis: Obstructive pyelonephritis 10 mm right ureterolithiasis Right hydronephrosis Right flank pain Recurrent stone former Postoperative diagnoses: Obstructive pyelonephritis 10 mm right ureterolithiasis Right hydronephrosis Right flank pain Recurrent stone former Acute cystitis Principal procedures: Cystoscopy Right retrograde pyelography Right ureteral stent placement Indication for procedure: 82-year-old woman with A-fib, hypertension, hyperlipidemia, history of recurrent UTIs and recurrent nephroureterolithiasis with 10 mm right UPJ obstructing calculus with signs of pyelonephritis and SIRS, suspected sepsis. Procedure note: The patient was consented in the preoperative holding area before being trans ferred to the operative suite where general anesthesia was induced. She has been given ceftriaxone in the emergency department and Zosyn on the floor at 2 PM. Pneumoboots were provided for DVT prophylaxis. Her genitalia was prepped using Hibiclens and she was draped in standard fashion after she was placed in the lithotomy position, padded and secured to the table appropriately. The case was begun using a 22 Spanish rigid cystoscope to traverse the urethra and into the bladder with ease. The bladder was decompressed of fluid and urine and then refilled with sterile saline. The bladder was then surveyed in its entirety, and there was nodular acute cystitis noted throughout. The ureteral orifice ease were noted within the trigone and the right ureteral orifice was cannulated using the tip of a 5 Spanish ureteral access catheter. A retrograde pyelogram was then performed. Right retrograde pyelography: Using a 70: 30 mixture of Omnipaque and saline, contrast was injected via the lumen of the 5 Spanish ureteral access catheter, and with fluoroscopic imaging, the contrast did propagate up the distal into the mid and proximal ureter, and I stopped injecting contrast just as it entered the renal pelvis beyond the UPJ, because there was residual retained contrast from the prior IV contrast CT scan performed. As a result, while the stone was not radiopaque, I passed the sensor wire via the 5 Spanish ureteral access catheter coiling it within the upper pole calyx of the kidney successfully. I then passed a 6 Spanish by 24 cm double-J ureteral stent over the wire and formed a coil within the upper pole as observed fluoroscopically with an additional coil formed cystoscopically within the bladder. I then decompressed her bladder of fluid and urine and took the patient out of the lithotomy position after removing the cystoscope. She was then awakened from general anesthesia before being transferred to a stretcher, and then she was transferred to the recovery room in good condition. Complications: None Discharge disposition: Continue aggressive antimicrobial therapy pending results of culture to define and tailor subsequent antimicrobial therapy to hopefully discharge her on an oral course to cover her through 14 total days of treatment. Subsequent follow-up should be established in the urology clinic thereafter to discuss surgical planning. Since the stone is radiolucent, she will require definitive management of it with right ureteroscopy with laser lithotripsy and stent exchange. Since she is a recurrent stone former, definitive metabolic profile analysis will be performed once her obstructive ureterolithiasis has been managed. Findings and Operative Technique
--- NOTE | 2023-03-31 21:34 | RAD REPORT ---
EXAM DESCRIPTION: RAD - Cystography - 03/31/2023 7:26 pm CLINICAL HISTORY: cysto COMPARISON: None available. FINDINGS: Six Images were sent to PACS, documenting fluoroscopic guidance during right ureteral sten t placement. No radiologist was available for the procedure, nor will any image interpretation he pro vided. Please refer to the procedural report for additional details. Fluoroscopy time: 13 seconds. IMPRESSION: Documentation of fluoroscopy utilization as above.
[2023-04-01] MEDS: ACETAMINOPHEN 500 MG TAB PO PRN (00:07)
[2023-04-01] MEDS: PIPER TAZO 3.375 GM in NA CHLORIDE 0.9% 100 ML IV SCH ×3 (00:08→18:59)
[2023-04-01] MEDS: NA CHLORIDE 0.9% 1,000 ML IV SCH ×3 (03:20→16:40)
[2023-04-01 03:24] LABS: Absolute Lymphocytes (CBC) 0.8 K/uL (0.7-4.9); Lymphocytes % 4.8 % (15.3-44.8); MCV 87.8 fL (80-100); Platelets 260 thou/uL (152-406); RBC Red Blood Cell Count 3.76 M/uL (3.86-4.86)
[2023-04-01 03:41] LABS: Magnesium 2.1 mg/dL (1.6-2.4); Phosphorus 1.8 mg/dL (2.5-4.9)
[2023-04-01] MEDS ORDERED: POTASSIUM 25 MEQ EFFERV TAB PO ONE (06:00)
[2023-04-01] MEDS: POTASS/SODIUM PHOSPHATE 1 PKT POWD.PACK PO SCH ×3 (06:15→08:01)
[2023-04-01] MEDS ORDERED: POTASSIUM CL SA 10 MEQ TAB PO SCH (08:00)
[2023-04-01] MEDS: PANTOPRAZOLE 40 MG INJ IVP SCH (08:01)
--- NOTE | 2023-04-01 09:25 | P.PN ---
Subjective Date of Service: 04/01/23 Chief Complaint: - Pyelonephritis, Kidney stone Subjective: No new changes, Improving, Doing well Patient is alert and oriented x 3 Resting in the bed NAD Denies any pain or shortness of breath Vital stable <RochaRenea hernández - Last Filed: 04/01/23 09:35> Date of Service: 04/02/23 <Felicia Douglas Emily - Last Filed: 04/02/23 13:33> Review of Systems 10-point ROS is otherwise unremarkable <Renea Rocha - Last Filed: 04/01/23 09:35> Physical Examination - Vital Signs Temperature: 98.7 F Blood Pressure: 115/56 Pulse: 97 Respirations: 18 Pulse Ox (%): 95 - Physical Exam General: Alert, Oriented x3 HEENT: Atraumatic, Normocephalic Neck: Supple, 2+ carotid pulse no bruit Respiratory: Clear to auscultation bilaterally, Normal air movement Cardiovascular: No edema, Normal pulses Capillary refill: <2 Seconds Gastrointestinal: Normal bowel sounds, Soft and benign Musculoskeletal: No clubbing, No contractures Integumentary: No rashes, No breakdown Neurological: Normal speech, Normal tone - Studies Laboratory Data (last 24 hrs) 03/31/23 03/31/23 03/31/23 12:40 11:20 11:20 WBC 22.90 H Hgb 13.1 Hct 39.2 Plt Count 313 PT 16.1 H INR 1.48 APTT 30.4 Sodium 136 Potassium 3.9 BUN 19 H Creatinine 1.35 H Glucose 127 H Total Bilirubin 1.1 H AST 34 ALT 34 Alkaline Phosphatase 144 H Lipase 12 L Microbiology Data (last 24 hrs): 03/31/23 10:35 Nasopharnyx Influenza Type A Antigen Screen - Final 03/31/23 10:35 Nasopharnyx Influenza Type B Antigen Screen - Final <RochaRenea hernández - Last Filed: 04/01/23 09:35> Assessment And Plan - Current Problems (Diagnosis) (1) Acute pyelonephritis Current Visit: Yes Status: Acute (2) Hydronephrosis of right kidney Current Visit: Yes Status: Acute (3) Obstruction of right ureteropelvic junction (UPJ) due to stone Current Visit: Yes Status: Acute (4) HTN (hypertension) Current Visit: Yes Status: Chronic Qualifiers: Hypertension type: primary hypertension Qualified Code(s): I10 - Essential (primary) hypertension (5) Afib Current Visit: Yes Status: Chronic Qualifiers: Atrial fibrillation type: persistent (not longstanding) Qualified Code(s): I48.19 - Other persistent atrial fibrillation; I48.1 - Persistent atrial fibrillation (6) HLD (hyperlipidemia) Current Visit: Yes Status: Chronic Qualifiers: Hyperlipidemia type: unspecified Qualified Code(s): E78.5 - Hyperlipidemia, unspecified (7) Insomnia Current Visit: Yes Status: Chronic Qualifiers: Insomnia type: primary Qualified Code(s): 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 Wise -Pt is afebrile, vitals stable CBC shows leukocytosis WBC of 22.9>-15.8, Renal impairment elevated BUN 19>16, elevated creatinine 1.35>1.07, low estimated GFR 40>53. Positive urine analysis on ABX Zisyn Abdomen Pelvis Wo Contrast dated 09/05/2018- Mild right-sided hydronephrosis with possible pyelitis and right sided pyelonephritis secondary to a 10 mm right UPJ stone. No renal abscess. Consulted urologist Dr. Wisenotified recommended to keep the patient n.p.o. planning to stent to the patient around 7 PM tonight Patient is n.p.o. EKG, chest x-ray done antibiotics, IV fluids started Will continue to monitor the patient closely CKD 3 -Not sure if acute on chronic, renal impairment elevated BUN 19, elevated creatinine 1.35, low estimated GFR 40. Positive urine analysis. Started IV fluids, will reevaluate the patient's BMP in the morning Renal dose medications Avoid nephrotoxins, and avoid NSAIDs Hypertension Chronic controlled on metoprolol 50 mg p.o. daily at home Will reconcile and start the home medication as appropriate History of A-fib Chronic controlled, patient on aspirin 81 mg p.o. daily, patient reports she was never put on any other anticoagulants Now on sinus rhythm Continue to monitor Hyperlipidemia Chronic, on simvastatin at home Reconcile and restart the home medication Insomnia Chronic, controlled on Ambien 10 mg at bedtime We will continue the current medications N.p.o. DVT prophylaxis-SCDs for now CODE STATUS-full code Discharge Plan: Home Plan to discharge in: 48 Hours - Code Status/Comfort Care Code Status Assessed: Yes (full code) Physician Review: Patient Assessed, Agree with Above Assessment and Plan Critical Care: No Time Spent Managing PTS Care (In Minutes): 35 (minutes) <Renea Rocha - Last Filed: 04/01/23 09:35> - Plan Pt seen and examined. I agree with the note by the NAVAL AIRCREWMAN. Continue iv abx. S/p renal stent placement <Felicia Douglas - Last Filed: 04/02/23 13:33>
[2023-04-01 12:59] LABS: Potassium 4.3 mEq/L (3.5-5.1)
--- NOTE | 2023-04-01 13:40 | EKG ---
Test Date: 2023-03-31 Test Time: 12:13:31 Drill Setup Operator: CALLUM MEASUREMENT RESULTS: Intervals: Rate: 93 CT: 186 QRSD: 98 QT: 368 QTc: 457 Williamson: P: 72 CT: 186 QRS: 4 T: 63 INTERPRETIVE STATEMENTS: Normal sinus rhythm Normal ECG Compared to ECG 12/15/2017 09:15:41 No significant changes Electronically Signed On 04-01-23 13:38:58 [employer] by Tvao Elliott
[2023-04-01] MEDS ORDERED: ONDANSETRON 4 MG/2 ML VIAL IV PRN (14:11)
[2023-04-02] MEDS: PIPER TAZO 3.375 GM in NA CHLORIDE 0.9% 100 ML IV SCH ×2 (00:19→09:00)
[2023-04-02 03:32] VITALS: BMI 35.0
[2023-04-02 03:45] LABS: Absolute Lymphocytes (CBC) 0.9 K/uL (0.7-4.9); Hematocrit 31.2 % (36.0-45.0); MCV 87.2 fL (80-100); MPV 7.9 fL (7.6-11.3); Platelets 227 thou/uL (152-406); RBC Red Blood Cell Count 3.58 M/uL (3.86-4.86)
[2023-04-02 04:04] LABS: Magnesium 1.9 mg/dL (1.6-2.4); Phosphorus 1.8 mg/dL (2.5-4.9); Potassium 3.7 mEq/L (3.5-5.1)
[2023-04-02] MEDS: NA CHLORIDE 0.9% 1,000 ML IV SCH ×3 (05:49→19:51)
[2023-04-02] MEDS ORDERED: POTASSIUM CL SA 10 MEQ TAB PO ONE (09:00)
[2023-04-02] MEDS: PANTOPRAZOLE 40 MG INJ IVP SCH (09:56)
[2023-04-02] MEDS: POTASS/SODIUM PHOSPHATE 1 PKT POWD.PACK PO SCH ×3 (09:56→11:37)
[2023-04-02] MEDS: Meropenem 1,000 MG in NA CHLORIDE 0.9% 100 ML IV SCH ×2 (10:08→19:57)
--- NOTE | 2023-04-02 11:08 | P.PN ---
Subjective Date of Service: 04/02/23 Chief Complaint: - Pyelonephritis, Kidney stone Subjective: No new changes, Improving, Doing well Patient is alert and oriented x 3 Resting in the bed NAD Denies any pain or shortness of breath Vital stable Positive urine ESBL , started om Merrem <Renea Rocha - Last Filed: 04/02/23 11:01> Date of Service: 04/03/23 <Felicia Douglas Emily - Last Filed: 04/03/23 12:01> Review of Systems 10-point ROS is otherwise unremarkable <Nitish Rochaross - Last Filed: 04/02/23 11:01> Physical Examination - Vital Signs Temperature: 96.5 F Blood Pressure: 134/58 Pulse: 89 Respirations: 16 Pulse Ox (%): 95 - Physical Exam General: Alert, Oriented x3 HEENT: Atraumatic, Normocephalic Neck: Supple Respiratory: Clear to auscultation bilaterally, Normal air movement Cardiovascular: No edema, Normal pulses Gastrointestinal: Normal bowel sounds, Soft and benign Musculoskeletal: No swelling, No contractures Integumentary: No rashes, No significant lesion Neurological: Normal speech, Normal tone, Normal affect <Renea Rocha - Last Filed: 04/02/23 11:01> Assessment And Plan - Current Problems (Diagnosis) (1) Acute pyelonephritis Onset Date: ~04/01/23 Current Visit: Yes Status: Acute (2) Hydronephrosis of right kidney Onset Date: ~04/01/23 Current Visit: Yes Status: Acute (3) Obstruction of right ureteropelvic junction (UPJ) due to stone Current Visit: Yes Status: Acute (4) HTN (hypertension) Current Visit: Yes Status: Chronic Qualifiers: Hypertension type: primary hypertension Qualified Code(s): I10 - Essential (primary) hypertension (5) Afib Current Visit: Yes Status: Chronic Qualifiers: Atrial fibrillation type: persistent (not longstanding) Qualified Code(s): I48.19 - Other persistent atrial fibrillation; I48.1 - Persistent atrial fibrillation (6) HLD (hyperlipidemia) Current Visit: Yes Status: Chronic Qualifiers: Hyperlipidemia type: unspecified Qualified Code(s): E78.5 - Hyperlipidemia, unspecified (7) Insomnia Current Visit: Yes Status: Chronic Qualifiers: Insomnia type: primary Qualified Code(s): 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 Wise -Pt is afebrile, vitals stable CBC shows leukocytosis WBC of 22.9>-15.8, Renal impairment elevated BUN 19>16, elevated creatinine 1.35>1.07, low estimated GFR 40>53. Positive urine analysis on ABX Merrem 1 gm Q12 h Abdomen Pelvis Wo Contrast dated 09/05/2018- Mild right-sided hydronephrosis with possible pyelitis and right sided pyelonephritis secondary to a 10 mm right UPJ stone. No renal abscess. Consulted urologist Dr. Hernandez/p cystoscopy , right pyelography, right ureteral stent placement on 03/31/2023 Will continue to monitor the patient closely CKD 3 -Not sure if acute on chronic, renal impairment elevated BUN 19, elevated creatinine 1.35, low estimated GFR 40. Positive urine analysis. Started IV fluids, will reevaluate the patient's BMP in the morning Renal dose medications Avoid nephrotoxins, and avoid NSAIDs Hypertension Chronic controlled on metoprolol 50 mg p.o. daily at home Will reconcile and start the home medication as appropriate History of A-fib Chronic controlled, patient on aspirin 81 mg p.o. daily, patient reports she was never put on any other anticoagulants Now on sinus rhythm Continue to monitor Hyperlipidemia Chronic, on simvastatin at home Reconcile and restart the home medication Insomnia Chronic, controlled on Ambien 10 mg at bedtime We will continue the current medications N.p.o. DVT prophylaxis-SCDs for now CODE STATUS-full code Discharge Plan: Home Plan to discharge in: 48 Hours - Code Status/Comfort Care Code Status Assessed: Yes (Full code) Code Status: Full Code Physician Review: Patient Assessed, Agree with Above Assessment and Plan Critical Care: No Time Spent Managing PTS Care (In Minutes): 35 (Minutes) <Renea Rocha - Last Filed: 04/02/23 11:01> - Plan Pt seen and examined. I agree with the note by the SIGNAL INTELLIGENCE ANALYST. Will change abx to merrem due to ESBL E. coli <Felicia Douglas - Last Filed: 04/03/23 12:01>
[2023-04-02] MEDS: ACETAMINOPHEN 500 MG TAB PO PRN (15:50)
[2023-04-03 04:18] LABS: Hematocrit 31.8 % (36.0-45.0); Lymphocytes % 11.2 % (15.3-44.8); MCV 87.5 fL (80-100); MPV 8.2 fL (7.6-11.3); Platelets 278 thou/uL (152-406); RBC Red Blood Cell Count 3.63 M/uL (3.86-4.86)
[2023-04-03 04:35] LABS: Magnesium 1.8 mg/dL (1.6-2.4); Phosphorus 2.3 mg/dL (2.5-4.9); Potassium 3.9 mEq/L (3.5-5.1)
--- NOTE | 2023-04-03 08:20 | P.PN ---
Subjective Date of Service: 04/03/23 Chief Complaint: - Pyelonephritis, Kidney stone Acute cystitis, urine positive for ESBL, started on Merrem - Physical Exam General: Alert, Oriented x3 HEENT: Atraumatic, Normocephalic Neck: Supple Respiratory: Clear to auscultation bilaterally, Normal air movement Cardiovascular: No edema, Normal pulses Gastrointestinal: Normal bowel sounds, Soft and benign Musculoskeletal: No swelling, No contractures Integumentary: No rashes, No significant lesion Neurological: Normal speech, Normal tone, Normal affect <Penelope Finnegan - Last Filed: 04/03/23 08:28> Date of Service: 04/03/23 <Felicia Douglas - Last Filed: 04/03/23 14:28> Physical Examination - Vital Signs Temperature: 97.3 F Blood Pressure: 119/66 Pulse: 94 Respirations: 17 Pulse Ox (%): 95 <Penelope Finnegan - Last Filed: 04/03/23 08:28> - Studies Microbiology Data (last 24 hrs): 03/31/23 12:40 Clean Catch Urine [place] Count - Final >100,000 CFU/ML. 03/31/23 12:40 Clean Catch Urine - Final Escherichia Coli Esbl Enterococcus Faecalis <Fleicia Douglas - Last Filed: 04/03/23 14:28> Assessment And Plan - Plan Assessment plan Sepsis secondary to acute pyelonephritis Acute pyelonephritis, ESBL in Urine Hydronephrosis of right kidney Obstruction of right ureter to the pelvic junction due to stone Urology following, infectious disease consulted S/P Cystoscopy for 03/31/2023 Right retrograde pyelography, right ureteral stent placement by Dr. Wise Abdomen Pelvis Wo Contrast dated 09/05/2018- Mild right-sided hydronephrosis with possible pyelitis and right sided pyelonephritis secondary to a 10 mm right UPJ stone. No renal abscess. Consulted urologist Dr. Hernandez/p cystoscopy , right pyelography, right ureteral stent placement on 03/31/2023 Leukocytosis improving Trend WBCs 15.8->11.40->8.80 Positive urine analysis on ABX Merrem 1 gm Q12 h Blood cultures negative influenza negative Acute on chronic kidney injury baseline CKD 3 Acute kidney injury improved with hydration creatinine 1.07-> 1.06-> 0.94-> 0.8 -Not sure if acute on chronic, renal impairment elevated BUN 19, elevated creatinine 1.35, low estimated GFR 40. Positive urine analysis. Started IV fluids, will reevaluate the patient's BMP in the morning Renal dose medications Avoid nephrotoxins, and avoid NSAIDs Microcytic anemia likely secondary to CKD Hemoglobin 11.2/33.0-> 10.7/31.3-> 10.8/31.8 Hypertension Chronic controlled on metoprolol 50 mg p.o. daily at home Will reconcile and start the home medication as appropriate History of A-fib Chronic controlled, patient on aspirin 81 mg p.o. daily, patient reports she was never put on any other anticoagulants Now on sinus rhythm Continue to monitor Hyperlipidemia Chronic, on simvastatin at home Reconcile and restart the home medication Insomnia Chronic, controlled on Ambien 10 mg at bedtime We will continue the current medications Diet n.p.o. DVT prophylaxis-SCDs for now CODE STATUS-full code Discharge Plan: Home Plan to discharge in: 48 Hours Physician Review: Patient Assessed, Agree with Above Assessment and Plan <Penelope Finnegan - Last Filed: 04/03/23 08:28> - Plan Pt seen and examined. I agree with the note by the FINANCING ANALYST. Will continue merrem due to ESBL E. coli. Will place PICC line or midline for invanz to complete 2 weeks of abx. <Felicia Douglas - Last Filed: 04/03/23 14:28>
[2023-04-03] MEDS: Meropenem 1,000 MG in NA CHLORIDE 0.9% 100 ML IV SCH ×2 (09:21→21:02)
[2023-04-03] MEDS: PANTOPRAZOLE 40 MG INJ IVP SCH (09:22)
[2023-04-03] MEDS: NA CHLORIDE 0.9% 1,000 ML IV SCH ×2 (09:25→21:15)
[2023-04-03] MEDS: Mupirocin NASAL 2 APPL/1 GM TUBE NAS SCH ×2 (15:42→21:03)
--- NOTE | 2023-04-03 20:42 | RAD REPORT ---
EXAM DESCRIPTION: [place] Single View04/03/2023 8:33 pm CLINICAL HISTORY: PICC line Placement COMPARISON: Chest Single View dated 03/31/2023; Chest Pa And Lat (2 Views) dated 05/29/2019; Chest Pa An d Lat (2 Views) dated 12/15/2017 TECHNIQUE: Portable AP view of the chest. FINDINGS: Right arm PICC in place with catheter tip projecting at the mid SVC. Mild hyperinflation. Blunting at the costophrenic angles bilaterally more so on the right, may suggest pleural thickening or small effusions. No pneumothorax or effusion. The cardiomediastinal contours are unremarkable. IMPRESSION: Right arm PICC tip projects at the mid SVC. Blunting of the costophrenic angles bilaterally may suggest pleural thickening or small effusions.
[2023-04-03] MEDS: ACETAMINOPHEN 500 MG TAB PO PRN (21:13)
[2023-04-03] MEDS ORDERED: ZOLPIDEM TARTRATE 10 MG TABLET PO PRN (23:15)
[2023-04-04] MEDS: NA CHLORIDE 0.9% 1,000 ML IV SCH ×3 (04:14→23:26)
[2023-04-04 04:53] LABS: Magnesium 1.9 mg/dL (1.6-2.4); Phosphorus 2.5 mg/dL (2.5-4.9); Potassium 3.8 mEq/L (3.5-5.1)
--- NOTE | 2023-04-04 08:31 | P.DS ---
Admission Date: 03/31/23 Discharge Date: 04/04/23 Reason for Admission: - Pyelonephritis, Kidney stone Brief History of Present Illness: Ms. Bell 82-year-old female with a history of A-fib, hypertension, hyperlipidemia, UTIs and kidney stones presents to the ER via ambulatory with c omplaints of fever, nausea and vomiting. Nausea vomiting began morning prior to admission. and patient started having fever since 03/30/2023. Patient reports her Tmax was 102.1. Severity of pain is 2/10. Patient's son helping with the history reports that patient took some Tylenol and Zofran in the morning f mild relief. Patient denies chest pain, discomfort, or palpitation. Admitted into acute care for treatment of acute pyelonephritis, hydronephrosis, sepsis with Dr. Wise urology to consult. - Physical Exam General: Alert, Oriented x3 HEENT: Atraumatic, Normocephalic Neck: Supple, 2+ carotid pulse no bruit Respiratory: Clear to auscultation bilaterally, Normal air movement Cardiovascular: No edema, Normal pulses Capillary refill: <2 Seconds Gastrointestinal: Normal bowel sounds Musculoskeletal: No clubbing, No swelling Integumentary: No rashes, No breakdown Neurological: Normal speech, Normal tone Hospital Course: Ms. Bell was treated and evaluated for: PROBLEM: Assessment plan Sepsis secondary to acute pyelonephritis Acute pyelonephritis, ESBL in Urine Hydronephrosis of right kidney Obstruction of right ureter to the pelvic junction due to stone She was evaluated by urology for Dr. Wise for abnormal CT scan 03/31/23 CT Abdomen Pelvis Wo Contrast dated - Mild right-sided hydronephrosis with possible pyelitis and right sided pyelonephritis secondary to a 10 mm right UPJ stone. No renal abscess. Consulted urologist Dr. Hernandez/p cystoscopy , right pyelography, right ureteral stent placement on 03/31/2023 Urinalysis was sent for urine culture, ESBL of the urine Infectious disease was consulted, ED patient was started on IV Merrem Plan to discharge home with IV antibiotics per infectious disease recommendations Dr. Espino. Complicated UTI - Urine culture 03/31: Escherichia coli ESBL and Enterococcus faecalis - Blood cultures 03/31: no growth to date - Started on Meropenem 04/02 - Complicated UTI: Continue antibiotic therapy for 14 days. E.coli ESBL: Meropenem 1g IV q12h E.faecalis: She will need to follow-up with urology 1 to 2 weeks after discharge. May take Tylenol for pain and fever. Resume home medications for hypertension, atrial fibrillation, hyperlipidemia, GOAL: Clear understanding of disease process INSTRUCTIONS: Physician Discharge Instructions: -DC IV and DC home -Follow-up with PCP in 1 to 2 weeks -Please call Dr. Garcia at [phone] if any questions regarding hospital stay -Please call nursing station at [phone] if any nursing or medication questions -Return to the emergency room if symptoms worsen Diet: ADA, low sodium Activity: Fall precautions DME:none Date Ordered: Name of Company: [employer] Services Needed: Home Health IV antibiotics Meropenem 1g IV q12h for 14 days Date or Referral: IMMUNIZATION Influenza Vaccine Indicated: Influenza Vaccine Given: Date Given: Pneumonia Vaccine Indicated: Pneumonia Vaccine Given: Date Given: Vital Signs/Physical Exam: Temp Pulse Resp BP Pulse Ox 97.5 F 81 20 143/81 H 97 04/04/23 07:04 04/04/23 07:04 04/04/23 07:04 04/04/23 07:04 04/04/23 07:04 Laboratory Data at Discharge: WBC 8.80 thou/uL (4.3-10.9) 04/03/23 03:23 Hgb 10.8 g/dL (12.0-15.0) L 04/03/23 03:23 Hct 31.8 % (36.0-45.0) L 04/03/23 03:23 Plt Count 278 thou/uL (152-406) 04/03/23 03:23 PT 16.1 SECONDS (9.5-12.5) H 03/31/23 12:40 INR 1.48 03/31/23 12:40 APTT 30.4 SECONDS (24.3-36.9) 03/31/23 12:40 Sodium 141 mEq/L (136-145) 04/04/23 04:20 Potassium 3.8 mEq/L (3.5-5.1) 04/04/23 04:20 BUN 8 mg/dL (7-18) 04/04/23 04:20 Creatinine 0.63 mg/dL (0.55-1.02) 04/04/23 04:20 Glucose 102 mg/dL (74-106) 04/04/23 04:20 Phosphorus 2.5 mg/dL (2.5-4.9) 04/04/23 04:20 Magnesium 1.9 mg/dL (1.6-2.4) 04/04/23 04:20 Total Bilirubin 1.1 mg/dL (0.2-1.0) H 03/31/23 11:20 AST 34 U/L (15-37) 03/31/23 11:20 ALT 34 U/L (13-56) 03/31/23 11:20 Alkaline Phosphatase 144 U/L (45-117) H 03/31/23 11:20 Triglycerides 87 mg/dL (<150) 04/01/23 02:42 Cholesterol 80 mg/dL (<200) 04/01/23 02:42 HDL Cholesterol 28 mg/dL (40-60) L 04/01/23 02:42 Cholesterol/HDL Ratio 2.86 04/01/23 02:42 Lipase 12 U/L (13-75) L 03/31/23 11:20 Home Medications: Citalopram [Celexa] 10 mg PO DAILY 12/07/17 Metoprolol Andrews/Hydrochlorothiaz [Metoprolol ER-Hctz 50-12.5 mg] 1 each PO DAILY 12/07/17 Simvastatin 40 mg PO DAILY 12/07/17 Sulfamethoxazole/Trimethoprim [Bactrim Ds Tablet] 1 each PO BID #10 tablet 12/19/17 Tramadol HCl/Acetaminophen [Ultracet Tablet] 1 each PO Q4H PRN #20 tablet 12/19/17 Followup: Slade Murphy MD [Primary Care Provider] -
[2023-04-04] MEDS: Meropenem 1,000 MG in NA CHLORIDE 0.9% 100 ML IV SCH ×2 (08:44→17:12)
[2023-04-04] MEDS: PANTOPRAZOLE 40 MG INJ IVP SCH (08:45)
[2023-04-04] MEDS: Mupirocin NASAL 2 APPL/1 GM TUBE NAS SCH ×2 (08:45→20:08)
--- NOTE | 2023-04-04 09:18 | P.CNS ---
Date of Consult: 04/04/23 Reason for Consult: UTI ESBL Chief Complaint: - Pyelonephritis, Kidney stone History of Present Illness: patient is an 82-year-old female with a medical history of A-fib, hypertension, hyperlipidemia, UTIs and kidney stones who presented to the ED with complaints of fever, nausea and vomiting. Of note, patient reports having ureteral stent placement on and kidney stones. Urine culture growing E.coli ESBL and E.faecalis. Infectious disease was consulted. Allergies codeine Allergy (Verified 12/15/17 08:50) Nausea/Vomiting oxycodone [From Percodan] Allergy (Verified 12/15/17 08:50) HALLUCINATIONS Home medications list reviewed: Yes Home Medications: Citalopram [Celexa*] 10 mg PO DAILY 12/07/17 Metoprolol Andrews/Hydrochlorothiaz [Metoprolol ER-Hctz 50-12.5 mg] 1 each PO DAILY 12/07/17 Simvastatin 40 mg PO DAILY 12/07/17 Tramadol HCl/Acetaminophen [Ultracet Tablet] 1 each PO Q4H PRN #20 tablet 12/19/17 - Past Medical/Surgical History Diabetic: No -: HTN -: Afib -: HLD -: Insomnia -: UTIs - Social History Alcohol use: No CD- Drugs: No Caffeine use: Yes Place of Residence: Home Review of Systems Unremarkable Physical Examination Temp Pulse Resp BP Pulse Ox 97.5 F 81 20 143/81 H 97 04/04/23 07:04 04/04/23 07:04 04/04/23 07:04 04/04/23 07:04 04/04/23 07:04 General: Alert, In no apparent distress, Oriented x3 HEENT: Atraumatic, Normocephalic Neck: Supple Respiratory: Clear to auscultation bilaterally, Normal air movement Cardiovascular: Regular rate/rhythm Gastrointestinal: Normal bowel sounds, Soft and benign Integumentary: No rashes Neurological: Normal speech Laboratory Data - Reviewed Microbiology Data - Reviewed Imagings Data: - Reviewed Conclusions/Impression: Problem List Sepsis secondary to acute pyelonephritis Obstructive pyelonephritis 10 mm right ureterolithiasis Right hydronephrosis Acute cystitis Atrial Fibrillation Hypertension Complicated UTI - Urine culture 03/31: Escherichia coli ESBL and Enterococcus faecalis - Blood cultures 03/31: no growth to date - Started on Meropenem 04/02 - Underwent Cystoscopy, Right retrograde pyelography and Right ureteral stent placement on 03/[address] Wise Afebrile Leukocytosis resolved Recommendations - Complicated UTI: Continue antibiotic therapy for 14 days. PICC line placed 04/03. Pending home health arrangements. CM/SS following. E.coli ESBL: Meropenem 1g IV q12h or Ertapenem 1g IV q24H E.faecalis: Ciprofloxacin 500mg PO BID - Follow up with urology as outpatient Case discussed with Herbert Mondragon
[2023-04-05] MEDS: Meropenem 1,000 MG in NA CHLORIDE 0.9% 100 ML IV SCH (00:20)
--- NOTE | 2023-04-05 07:03 | P.PN ---
Subjective Date of Service: 04/04/23 Chief Complaint: - Pyelonephritis, Kidney stone Acute cystitis, urine positive for ESBL, started on Merrem, plan to dc home with HH IV abs - Physical Exam General: Alert, Oriented x3 HEENT: Atraumatic, Normocephalic Neck: Supple Respiratory: Clear to auscultation bilaterally, Normal air movement Cardiovascular: No edema, Normal pulses Gastrointestinal: Normal bowel sounds, Soft and benign Musculoskeletal: No swelling, No contractures Integumentary: No rashes, No significant lesion Neurological: Normal speech, Normal tone, Normal affect Review of Systems per HPI Physical Examination - Vital Signs Temperature: 96.8 F Blood Pressure: 141/59 Pulse: 78 Respirations: 18 Pulse Ox (%): 96 Assessment And Plan - Plan Assessment plan Sepsis secondary to acute pyelonephritis Acute pyelonephritis, ESBL in Urine Hydronephrosis of right kidney Obstruction of right ureter to the pelvic junction due to stone Urology following, infectious disease consulted S/P Cystoscopy for 03/31/2023 Right retrograde pyelography, right ureteral stent placement by Dr. Wise Abdomen Pelvis Wo Contrast dated 09/05/2018- Mild right-sided hydronephrosis with possible pyelitis and right sided pyelonephritis secondary to a 10 mm right UPJ stone. No renal abscess. Consulted urologist Dr. Hernandez/p cystoscopy , right pyelography, right ureteral stent placement on 03/31/2023 Leukocytosis improving Trend WBCs 15.8->11.40->8.80 Positive urine analysis on ABX Merrem 1 gm Q12 h Blood cultures negative influenza negative Acute on chronic kidney injury baseline CKD 3 Acute kidney injury improved with hydration creatinine 1.07-> 1.06-> 0.94-> 0.8 -Not sure if acute on chronic, renal impairment elevated BUN 19, elevated creatinine 1.35, low estimated GFR 40. Positive urine analysis. Started IV fluids, will reevaluate the patient's BMP in the morning Renal dose medications Avoid nephrotoxins, and avoid NSAIDs Microcytic anemia likely secondary to CKD Hemoglobin 11.2/33.0-> 10.7/31.3-> 10.8/31.8 Hypertension Chronic controlled on metoprolol 50 mg p.o. daily at home Will reconcile and start the home medication as appropriate History of A-fib Chronic controlled, patient on aspirin 81 mg p.o. daily, patient reports she was never put on any other anticoagulants Now on sinus rhythm Continue to monitor Hyperlipidemia Chronic, on simvastatin at home Reconcile and restart the home medication Insomnia Chronic, controlled on Ambien 10 mg at bedtime We will continue the current medications Diet n.p.o. DVT prophylaxis-SCDs for now CODE STATUS-full code Discharge Plan: Home Plan to discharge in: 48 Hours Discharge Plan: Home - Code Status/Comfort Care Code Status: Full Code Critical Care: No Time Spent Managing PTS Care (In Minutes): 35
[2023-04-05 07:51] VITALS: BP 119/82; TEMP 97.8
[2023-04-05 08:52] VITALS: O2SAT 96
--- NOTE | 2023-04-05 08:57 | P.PN ---
Date of Service: 04/05/23 Chief Complaint: - Pyelonephritis, Kidney stone Subjective: Improving. Denies any new or worsening complaints. In no apparent distress. No acute events overnight. Pending discharge home with home health. Physical Examination Temp Pulse Resp BP Pulse Ox 97.8 F 78 18 119/82 95 04/05/23 07:47 04/05/23 07:47 04/05/23 07:47 04/05/23 07:47 04/05/23 07:47 General: Alert, In no apparent distress, Oriented x3 HEENT: Atraumatic, Normocephalic Neck: Supple Respiratory: Clear to auscultation bilaterally, Normal air movement Cardiovascular: Regular rate/rhythm Gastrointestinal: Normal bowel sounds, Soft and benign Integumentary: No rashes Neurological: Normal speech Laboratory Data - Reviewed Microbiology Data - Reviewed Imagings Data: - Reviewed Medications List: Reviewed Assessment and Plan Problem List Sepsis secondary to acute pyelonephritis Obstructive pyelonephritis 10 mm right ureterolithiasis Right hydronephrosis Acute cystitis Atrial Fibrillation Hypertension Complicated UTI - Urine culture 03/31: Escherichia coli ESBL and Enterococcus faecalis - Blood cultures 03/31: no growth to date - Started on Meropenem 04/02 - Underwent Cystoscopy, Right retrograde pyelography and Right ureteral stent placement on 03/[address] Wise Afebrile Leukocytosis resolved Recommendations - Complicated UTI: Continue antibiotic therapy for total of 14 days. PICC line placed 04/03. Pending home health arrangements. CM/SS following. E.coli ESBL: Ertapenem IV upon discharge E.faecalis: Augmentin PO upon discharge. - Follow up with urology as outpatient Case discussed with Herbert Mondragon
[2023-04-05] MEDS ORDERED: CIPROFLOXACIN HCL 500 MG TAB PO SCH (09:00)
[2023-04-05] MEDS: PANTOPRAZOLE 40 MG INJ IVP SCH (09:33)
[2023-04-05] MEDS: Mupirocin NASAL 2 APPL/1 GM TUBE NAS SCH (09:33)
[2023-04-05] MEDS ORDERED: Meropenem 1,000 MG in NA CHLORIDE 0.9% 100 ML IV SCH (10:30)
[2023-04-05] MEDS ORDERED: ERTAPENEM NA 1 GM in NA CHLORIDE 0.9% 100 ML IVPB ONE (12:15)
== END 2023-04-05 12:20 | disposition home health service (06) | DRG 854 ==
LOC: ER 09:57 → ERHOLD 13:29 → 2ND 16:48
PROVIDERS: ADMIT Hospitalist; ATTEND Hospitalist
PROC: BT1D1ZZ Fluoroscopy of Right Kidney, Ureter and Bladder using Low Osmolar Contrast (ICD-10-PCS; 2023-03-31)
PROC: 0T768DZ Dilation of Right Ureter with Intraluminal Device, Via Natural or Artificial Opening Endoscopic (ICD-10-PCS; principal; 2023-03-31 19:00)
PROC: 02HV33Z Insertion of Infusion Device into Superior Vena Cava, Percutaneous Approach (ICD-10-PCS; 2023-04-03)
DX: A41.51 Sepsis due to Escherichia coli [E. coli] (principal); I48.19 Other persistent atrial fibrillation; N13.6 Pyonephrosis; Z16.12 Extended spectrum beta lactamase (ESBL) resistance; E78.5 Hyperlipidemia, unspecified; I12.9 Hypertensive chronic kidney disease with stage 1 through stage 4 chronic kidney disease, or unspecified chronic kidney disease; N18.30 Chronic kidney disease, stage 3 unspecified; D63.1 Anemia in chronic kidney disease; D50.9 Iron deficiency anemia, unspecified; F51.01 Primary insomnia; Z88.5 Allergy status to narcotic agent; Z11.52 Encounter for screening for COVID-19; Z79.899 Other long term (current) drug therapy
CPT/HCPCS: 36415; 51600; 71045; 74177; 74430; 80048; 80053; 80061; 81001; 83605; 83690; 83735; 84100; 84439; 84443; 85025; 85610; 85730; 87040; 87077; 87086; 87088; 87186; 87804; 87811; 93005; 94640; 94760; 99285; C9113; J0696; J1335; J2185; J2250; J2405; J2543; J2550; J2704; J3010; J7030; J7040; J7120; J7613; Q9967

== ENCOUNTER 2023-05-03 10:13 | Day surgery (SDC) | payer OTHER ==
[2023-04-18 09:38] LABS: Absolute Lymphocytes (CBC) 1.4 K/uL (0.7-4.9); Hematocrit 40.5 % (36.0-45.0); Lymphocytes % 20.2 % (15.3-44.8); MCV 86.7 fL (80-100); MPV 8.1 fL (7.6-11.3); Platelets 391 thou/uL (152-406); RBC Red Blood Cell Count 4.67 M/uL (3.86-4.86)
[2023-04-18 09:43] LABS: Protime INR 1.01
[2023-04-18 09:51] LABS: Potassium 3.7 mEq/L (3.5-5.1)
[2023-05-03] MEDS ORDERED: Ringers Lactate 1,000 ML IV ONE (10:28)
[2023-05-03] MEDS ORDERED: LIDOCAINE 1% MPF 5 ML VIAL ONE (12:03)
[2023-05-03] MEDS ORDERED: propofoL 200 MG/20 ML VIAL IV ONE (12:03)
[2023-05-03] MEDS ORDERED: ROCURONIUM 50 MG/5 ML VIAL IV ONE (12:04)
[2023-05-03] MEDS ORDERED: FENTANYL CITR 100 MCG/2 ML ONE (12:04)
[2023-05-03] MEDS ORDERED: AMPICILLIN SODIUM 2 GM/VIAL VIAL ONE (12:14)
[2023-05-03] MEDS ORDERED: GENTAMICIN 100 MG/100 ML BAG 200 ML IV ONE (12:15)
[2023-05-03] MEDS ORDERED: ONDANSETRON 4 MG/2 ML VIAL ONE (12:47)
[2023-05-03] MEDS ORDERED: dexAMETHasone 10 MG/ML VIAL ONE (12:47)
[2023-05-03] MEDS ORDERED: KETOROLAC 30 MG/ML INJ ONE (12:47)
[2023-05-03] MEDS ORDERED: SUGAMMADEX SODIUM 200 MG/2 ML VIAL IV ONE (13:12)
--- NOTE | 2023-05-03 13:53 | RAD REPORT ---
EXAM DESCRIPTION: RAD - Urethrocystogrphy Retrograde - 05/03/2023 1:39 pm CLINICAL HISTORY: RIGHT STENT EXCHANGE COMPARISON: <Comparisons> FINDINGS: Total fluoro time: 27 seconds
[2023-05-03] MEDS ORDERED: Gentamicin Inj 280 MG in NA CHLORIDE 0.9% 100 ML IVPB ONE (14:30)
[2023-05-03 16:01] VITALS: TEMP 97; O2SAT 100
[2023-05-03 16:19] VITALS: BP 135/60
--- NOTE | 2023-05-03 23:09 | OP ---
Surgeon: JULY NASCIMENTO Preoperative Diagnoses: 1.A 10 mm proximal right ureterolithiasis. 2.Status post right ureteral stent placement. 3.Complicated urinary tract infection, recurrent. Postoperative Diagnoses: 1.A 10 mm proximal right ureterolithiasis. 2.Status post right ureteral stent placement. 3.Complicated urinary tract infection, recurrent. 4.Right ureteropelvic junction stricture/stenosis. Principal Procedures: 1.Cystoscopy. 2.Right ureteral stent exchange. 3.Right ureteroscopy with laser lithotripsy. 4.Right renal aspirate urine culture. Indication For Procedure: Ms. Bell presented via the emergency department with a history of nephrour eterolithiasis requiring ESWL and ureteroscopy with laser lithotripsy and also a history of recurrent UTI/pyelonephritis, who ultimately was found to have ESBL E coli in her urine. She, underwent, subs equent imaging, which revealed the presence of a right 10 mm proximal UPJ obstructing calculus and ul timately underwent right ureteral stent placement 03/31/2023. The stone was radiolucent; so she requ ired definitive management with ureteroscopy and laser lithotripsy. She presents today for such [facility]. Of note, she had signs and symptoms of recurrent infection that was treated by her primary c are physician with a combination of Augmentin and Bactrim. Procedure In Detail: The patient was consented in the preoperative holding area before being transfe rred to the operative suite where general anesthesia was induced. She was given ampicillin 2 g and g entamicin 160 mg IV antimicrobial prophylaxis, and pneumoboots were provided for DVT prophylaxis. Sh e was placed in the lithotomy position, padded and secured to the table appropriately, and her genita latisha were prepped with Hibiclens before being draped in standard fashion. The case was begun using a 22-Lithuanian rigid cystoscope to traverse the urethra and into the bladder with ease. The bladder was d ecompressed of some cloudy appearing urine present despite the prior antimicrobial therapy. The sten t was noted to emanate from the right ureteral orifice, and the coil of the stent was grasped using a n alligator grasper and the tip of the stent delivered to the meatus. I then attempted to pass a Sen sor wire via the stent, but it was encrusted within the coil. As a result, I cut the coil off and wa s able to navigate the Sensor wire up the remainder of the stent successfully into the putative colle cting system with a coil of the wire observed fluoroscopically. I then passed a dual-lumen catheter over the Sensor wire into the mid proximal ureter and injected a 70:30 mixture of Omnipaque and salin e via the second lumen of the dual-lumen catheter to perform a retrograde pyelography study. Right retrograde pyelography: Using the contrast mixture injected via the second lumen of the dual-l umen catheter, this did delineate the proximal ureter with evidence of some potential obstruction at the UPJ before delineating the calyces and renal pelvis of the right kidney. As a result, I passed a Bentson wire via the second lumen of the dual-lumen catheter coiling it successfully alongside the S ensor safety wire within the renal pelvis. I then used a flexible ureteroscope, passed over the Bent son guidewire into the collecting system, but there, I observed significant residual cloudy urine. A s a result, I did aspirate some of the urine from the kidney for a total of about 25 cc, and I sent t his for culture as right renal aspirate urine culture. Because there was still significant residual cloudiness, despite further attempts to instill about 15 cc of saline and aspirate it out to irrigate the renal pelvis, I elected to then pass the Bentson guidewire via the ureteroscope into the collect ing system and remove the ureteroscope leaving the wire in place before using an 11 x 13-Lithuanian urete ral access sheath, passed into the proximal ureter over the Bentson wire. I then passed the flexible ureteroscope back through the access sheath over the wire into the upper pole of the kidney and surv eyed it. No stones were seen in the upper pole, and in the mid pole posteriorly, the 10 mm calculus was now noted to be displaced into that location. As a result, I utilized a 272 nanometer laser fibe r at power setting of 0.8 joules and 15 hertz to begin to quickly fragment that stone into dust. The outer layers of the stone were indeed soft and matrix in composition consistent with infections rela jessica stone. The deeper layers of the enucleated calculus were of true stone material. Eventually, I increased the rate to 25 Hz in order to completely dust all of the stone fragments into dust fragment s smaller than the size of the laser fiber. Once adequately dusted, I then surveyed into the lower p ole calyces and the renal pelvis for any additional signs of calculi, and when none were noted, I the n surveyed into the proximal ureter for any additional calculi before removing the ureteroscope, leav ing the ureteral access sheath in place. There was some narrowing consistent with some strictured di sease at the UPJ, likely from the impacted nature of the stone; so in order to try to irrigate the st one dust from within the kidney, I attempted to navigate the ureteral access sheath with the obturato r reinserted back over that point of obstruction under fluoroscopic guidance into the kidney. Unfort unately, there was resistance with attempts to pass it, and when I injected contrast via the obturato r of the ureteral access sheath, it did demonstrate a bit of submucosal extraluminal extravasation co nsistent with the tip of the ureteral access sheath, likely having dug into the wall of the renal pel vis. This was contained, within the upper portion of the renal pelvis wall. Fortunately, the safety wire was nicely positioned within the mid pole calyces of the kidney; so, I simply removed the urete ral access sheath at this time, avoiding further attempts to irrigate and remove the stone dust, and I back-loaded the cystoscope over the safety wire in order to pass a 6-Lithuanian x 24 cm double-J ureter al stent successfully into the collecting system with a coil observed fluoroscopically in the renal p ashish and one cystoscopically formed in the bladder. I then decompressed her bladder of fluid and ur ine, and took the patient out of the lithotomy position. She was then awakened from general anesthes ia, transferred to a stretcher, and then transferred to the recovery room in good condition. Complications: Slight submucosal renal pelvic perforation with extraluminal extravasation of a small amount of contrast contained within the wall of the renal pelvis. Discharge Disposition: Given the ureteral strictured narrowing at the UPJ associated with the impact ion of the 10 mm calculus and the infectious nature of the stone, I would like for her to keep the st ent for at least the next 4-6 weeks to allow hopefully the stricture disease not to progress and resu lt in definitive obstruction. She will complete the course of antimicrobial therapy prescribed by r primary care physician, and we will reassess her urine about 2-3 weeks prior to followup for cystos copy and right ureteral stent extraction, which we will arrange to occur in approximately 4-6 weeks. That urine culture will assess for persistence of the infection and to determine if we need to place her on additional antimicrobial in advance of the planned cystoscopy and right ureteral stent extrac tion. Subsequently, she will require definitive stone metabolic profile assessment given her recurrent stone formation and the complications associated with infection stone. DELMIS/YVONNE Voice ID: [id number] Report ID: [id number]
== END 2023-05-03 15:55 | disposition home or self-care (01) ==
LOC: OR 10:13
PROVIDERS: ATTEND Urology
PROC: 0T768DZ Dilation of Right Ureter with Intraluminal Device, Via Natural or Artificial Opening Endoscopic (ICD-10-PCS; 2023-05-03)
PROC: 0TF68ZZ Fragmentation in Right Ureter, Via Natural or Artificial Opening Endoscopic (ICD-10-PCS; principal; 2023-05-03 11:45)
DX: N20.0 Calculus of kidney (principal); N20.1 Calculus of ureter; N39.0 Urinary tract infection, site not specified; Z87.440 Personal history of urinary (tract) infections
CPT/HCPCS: 87088; 85025; 87086; 80048; 36415; 85610; 74450; 51610; 52356; J1580; J2704; J2001; J3010; J1100; J2405; J0290; J7120